=== PATIENT | female | born 1955 | race Caucasian/White ===

== ENCOUNTER 2016-12-04 18:20 | Observation (INO) | payer SELFPAY ==
[~2016-12-04] VITALS: Ht 160 cm; Wt 45.0 kg
[2016-12-04] VITALS (8 sets, daily range): BP systolic 78–160; BP diastolic 54–88; PULSE 68–87; RESP 16–20; TEMP 97.7–98; O2SAT 95–100
[~2016-12-04 18:20] MED LIST: PERC5TAB12 PO
[2016-12-04] MEDS ORDERED: SODIUM CHLOR 0.9% 1000 ML INJ 1,000 ML IV ONE ×2 (18:31→20:00)
--- NOTE | 2016-12-04 18:34 | PD ---
HPI Chief Complaint: syncope Time Seen by Provider: 18:34 Travel History International Travel<30 days: No Contact w/Intl Traveler<30days: No History of Present Illness HPI 61-year-old female with a past medical history of chronic neck and back pain on Dilaudid at home presents to the emergency department for evaluation of syncope. She states she was at a family member's house standing up when she had a syncopal episode. She states she felt fine before this single episode and denies any headache or chest pain before. No dizziness before. She denies any seizure activity and states it was witnessed by a family member. The patient reports cough and congestion for the past 4 days after "I inhaled a piece of licorice". She states she has been taking her daughter's antibiotics that were left over for this. Patient reports headache at this time. She does report history of chronic neck pain and is unsure of her neck pain is worse at this time. Patient was ambulatory after the syncopal episode. She denies any fevers or chills. She denies any illegal drug use. She denies any alcohol intake. According to EMS, she was hypotensive on scene with a systolic blood pressure in the 70s. Patient states her blood pressure normally runs 90 systolic. Patient denies any recent surgery or travel. She denies any chest pain. No hemoptysis. No edema. She denies any history of renal disease or CHF. PFSH Past Medical History Cancer: No COPD: No (denies having copd) Endocrine: No Gastrointestinal Disorders: Yes (hepatitis C) Hepatitis: Yes Hypertension: Yes Musculoskeletal: No Neurologic: No Past Surgical History Appendectomy: Yes Social History Alcohol Use: No Tobacco Use: Yes (1/2 PPD) Substance Use: Yes (cocaine, marijuana) Allergies-Medications (Allergen,Severity, Reaction): Coded Allergies: Penicillin (Verified Allergy, Severe, Hives, 02/13/16) Erythromycin (Verified Allergy, Intermediate, yeast infection, 02/13/16) *MDRO Multi-Drug Resistant Organism (Verified Adverse Reaction, Unknown, ) 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 SKIN: Warm and dry. HEAD: Normocephalic. Atraumatic. EYES: No scleral icterus. No injection or drainage. NECK: Supple, trachea midline. No JVD or lymphadenopathy. CARDIOVASCULAR: Regular rate and rhythm without murmurs, gallops, or rubs. RESPIRATORY: Breath sounds equal bilaterally. No accessory muscle use. Lungs sounds are clear to auscultation. GASTROINTESTINAL: Abdomen soft, non-tender, nondistended. MUSCULOSKELETAL: No cyanosis, or edema. Bilateral upper lower extremity strength 5/5. All extremities are neurovascularly intact. BACK: No obvious deformity. No CVA tenderness. Patient has midline cervical spine tenderness to palpation. Data Data Last Documented VS Vital Signs Date Time Temp Pulse Resp B/P Pulse Ox O2 Delivery O2 Flow Rate FiO2 12/04/16 19:30 77 16 96/65 90 78/54 12/04/16 19:06 Room Air 12/04/16 18:29 97.7 95 Orders Electrocardiogram (12/04/16 18:31) Complete Blood Count With Diff (12/04/16 18:31) Comprehensive Metabolic Panel (12/04/16 18:31) Magnesium (Mg) (12/04/16 18:31) Ckmb (Isoenzyme) Profile (12/04/16 18:31) Troponin I (12/04/16 18:31) Act Partial Throm Time (Ptt) (12/04/16 18:31) Prothrombin Time / Inr (Pt) (12/04/16 18:31) Urinalysis - C+S If Indicated (12/04/16 18:31) Chest, Single Ap (12/04/16 18:31) Ct Brain W/O Iv Contrast(Rout) (12/04/16 18:31) Ct Cerv Spine W/O Contrast (12/04/16 18:31) Ecg Monitoring (12/04/16 18:31) Iv Access Insert/Monitor (12/04/16 18:31) Oximetry (12/04/16 18:31) Sodium Chloride 0.9% Flush (Ns Flush) (12/04/16 18:45) Sodium Chlor 0.9% 1000 Ml Inj (Ns 1000 M (12/04/16 18:31) Orthostatic Vital Signs (12/04/16 18:31) Drug Screen, Random Urine (12/04/16 18:31) Sodium Chlor 0.9% 1000 Ml Inj (Ns 1000 M (12/04/16 20:00) Labs Laboratory Tests Test 12/04/16 19:00 White Blood Count 7.3 TH/MM3 Red Blood Count 4.60 MIL/MM3 Hemoglobin 14.4 GM/DL Hematocrit 42.9 % Mean Corpuscular Volume 93.1 FL Mean Corpuscular Hemoglobin 31.2 PG Mean Corpuscular Hemoglobin 33.5 % Concent Red Cell Distribution Width 16.1 % Platelet Count 156 TH/MM3 Mean Platelet Volume 8.2 FL Neutrophils (%) (Auto) 73.7 % Lymphocytes (%) (Auto) 16.4 % Monocytes (%) (Auto) 8.0 % Eosinophils (%) (Auto) 1.4 % Basophils (%) (Auto) 0.5 % Neutrophils # (Auto) 5.4 TH/MM3 Lymphocytes # (Auto) 1.2 TH/MM3 Monocytes # (Auto) 0.6 TH/MM3 Eosinophils # (Auto) 0.1 TH/MM3 Basophils # (Auto) 0.0 TH/MM3 CBC Comment DIFF FINAL Differential Comment Prothrombin Time 11.0 SEC Prothromb Time International 1.0 RATIO Ratio Activated Partial 24.7 SEC Thromboplast Time Sodium Level 140 MEQ/L Potassium Level 4.5 MEQ/L Chloride Level 108 MEQ/L Carbon Dioxide Level 23.6 MEQ/L Anion Gap 8 MEQ/L Blood Urea Nitrogen 21 MG/DL Creatinine 1.99 MG/DL Estimat Glomerular Filtration 25 ML/MIN Rate Random Glucose 178 MG/DL Calcium Level 9.0 MG/DL Magnesium Level 2.3 MG/DL Total Bilirubin 0.5 MG/DL Aspartate Amino Transf 63 U/L (AST/SGOT) Alanine Aminotransferase 88 U/L (ALT/SGPT) Alkaline Phosphatase 90 U/L Total Creatine Kinase 55 U/L Troponin I LESS THAN 0.02 NG/ML Total Protein 8.4 GM/DL Albumin 3.7 GM/DL [facility] Medical Decision Making Medical Screen Exam Complete: Yes Emergency Medical Condition: Yes Medical Record Reviewed: Yes Interpretation(s) chest x-ray - CONCLUSION: Hyperinflated lungs; No evidence of acute air space disease or congestion. CT brain - CONCLUSION: Minimal left frontal subcutaneous swelling. No evidence of acute intracranial trauma, infarct, hemorrhage mass or edema. CT cervical spine - CONCLUSION: Mild degenerative anterolisthesis at C4-5 secondary to facet arthropathy. No evidence of acute fracture or traumatic listhesis. Moderate to severe degenerative disc disease at C5-6 and C6-7. Differential Diagnosis Medication overdose versus electrolyte abnormality versus cardiac arrhythmia versus hypotension versus dehydration versus intracranial abnormality Narrative Course 61-year-old female presents to the emergency department after a syncopal episode that was witnessed just prior to arrival. EKG, CBC, CMP, magnesium, CK , troponin, coags, UA, urine drug screen are ordered and pending. CT of the brain and cervical spine are ordered and pending. Chest x-ray is ordered and pending. Orthostatic vital signs are ordered and pending. Patient is given normal saline 1 L IV bolus. EKG shows SR, HR 86, no acute ST changes. CBC is unremarkable. CMP shows elevated BUN/creatinine of 21/1.99, AST 63, ALT 88. Magnesium is 2.3. CK is 55. Troponin is less than 0.02. Coags are unremarkable. UA [and UDS are pending. CT of the brain shows No evidence of acute intracranial trauma, infarct, hemorrhage mass or edema.. CT of the cervical spine show no evidence of acute fracture or traumatic listhesis.. Chest x-ray shows hyperinflated lungs; no evidence of acute air space disease or congestion. Orthostatic VS are positive for orthostatic hypotension. Patient is given 2nd liter IVF. [facility] is paged for admission. Dr. Kellogg accepted admission. Diagnosis Primary Impression: Syncope Qualified Code: R55 - Syncope, unspecified syncope type Additional Impressions: Orthostatic hypotension Acute kidney injury Admitting Information Admitting Physician Requests: Observation Ruby Garcia Dec 04, 2016 18:34
[2016-12-04] MEDS ORDERED: SODIUM CHLORIDE 0.9% FLUSH 5 ML FLUSH IVF PRN (18:45)
[2016-12-04 19:30] LABS: AUTOMATED NEUTROPHIL # 5.4 TH/MM3 (1.8-7.7); BASOPHIL % 0.5 % (0.0-2.0); EOSINOPHIL # 0.1 TH/MM3 (0-0.4); EOSINOPHIL % 1.4 % (0.0-4.0); HEMATOCRIT 42.9 % (35.0-46.0); HEMO FLAGS DIFF FINAL; LYMPH % 16.4 % (9.0-44.0); LYMPHOCYTE # 1.2 TH/MM3 (1.0-4.8); MEAN CELL VOLUME 93.1 FL (80.0-100.0); MEAN CORPUSCULAR HEMOGLOBIN 31.2 PG (27.0-34.0); MEAN CORPUSCULAR HGB CONC 33.5 % (32.0-36.0); NEUT % 73.7 % (16.0-70.0); PLATELET COUNT 156 TH/MM3 (150-450); RED CELL DISTRIBUTION WIDTH 16.1 % (11.6-17.2); WHITE BLOOD COUNT 7.3 TH/MM3 (4.0-11.0)
[2016-12-04 19:42] LABS: APTT (PATIENT) 24.7 SEC (24.3-30.1)
--- NOTE | 2016-12-04 19:48 | RADRPT ---
EXAM DATE/TIME: 12/04/2016 19:07 [facility] COMPARISON: CHEST SINGLE AP, February 17, 2016, 16:53. EXTERNAL COMPARISON : INDICATIONS : Patient passed out. MEDICAL HISTORY : None. SURGICAL HISTORY : None. ENCOUNTER: Initial ACUITY: 1 day PAIN SCORE: 0/10 LOCATION: Bilateral chest FINDINGS: Lungs are markedly hyperinflated. There is no evidence of consolidating airspace disease, pneumothora x or congestion. Heart and mediastinal structures are unremarkable. CONCLUSION: Hyperinflated lungs No evidence of acute air space disease or congestion. Arsh Stanley MD on December 04, 2016 at 19:45 Board Certified Radiologist. This report was verified electronically.
[2016-12-04 19:50] LABS: ALT (GPT) 88 U/L (10-53); ANION GAP 8 MEQ/L (5-15); AST (GOT) 63 U/L (15-37); BICARBONATE 23.6 MEQ/L (21.0-32.0); BLOOD UREA NITROGEN 21 MG/DL (7-18); CHLORIDE 108 MEQ/L (98-107); GLOMERULAR FILTRATION RATE 25 ML/MIN (>89); MAGNESIUM 2.3 MG/DL (1.5-2.5); POTASSIUM 4.5 MEQ/L (3.5-5.1); SODIUM (NA) 140 MEQ/L (136-145)
--- NOTE | 2016-12-04 19:53 | RADRPT ---
EXAM DATE/TIME: 12/04/2016 18:59 [facility] COMPARISON: CT BRAIN W/O CONTRAST, February 13, 2016, 2:10. INDICATIONS : Syncope with head trauma. RADIATION DOSE: 28.64 CTDIvol (mGy) MEDICAL HISTORY : Hepatitis C. Hypertension. Chronic obstructive pulmonary disease. SURGICAL HISTORY : Appendectomy. ENCOUNTER: Initial ACUITY: 1 day PAIN SCALE: 5/10 LOCATION: cranial TECHNIQUE: Multiple contiguous axial images were obtained of the head. Using automated exposure control and adj ustment of the mA and/or kV according to patient size, radiation dose was kept as low as reasonably a chievable to obtain optimal diagnostic quality images. FINDINGS: CEREBRUM: The ventricles are normal for age. No evidence of midline shift, mass lesion, hemorrhage or acute in farction. No extra-axial fluid collections are seen. POSTERIOR FOSSA: The cerebellum and brainstem are intact. The 4th ventricle is midline. The cerebellopontine angle i s unremarkable. EXTRACRANIAL: There is minimal left frontal subcutaneous swelling. The visualized portion of the orbits is intact. SKULL: The calvaria is intact. No evidence of skull fracture. CONCLUSION: Normal left frontal subcutaneous swelling. No evidence of acute intracranial trauma, infarct, hemorrhage mass or edema. Arsh Stanley MD on December 04, 2016 at 19:51 Board Certified Radiologist. This report was verified electronically.
[2016-12-04 19:54] LABS: ALKALINE PHOSPHATASE 90 U/L (45-117); TOTAL BILIRUBIN ADULT 0.5 MG/DL (0.2-1.0)
--- NOTE | 2016-12-04 19:56 | RADRPT ---
EXAM DATE/TIME: 12/04/2016 18:59 [facility] COMPARISON: No previous studies available for comparison. INDICATIONS : Syncope with head trauma. RADIATION DOSE: 7.66 CTDIvol (mGy) MEDICAL HISTORY : Chronic obstructive pulmonary disease. Hepatitis C. Hypertension. SURGICAL HISTORY : Appendectomy. ENCOUNTER: Initial ACUITY: 1 day PAIN SCALE: 5/10 LOCATION: cranial TECHNIQUE: Volumetric scanning of the cervical spine was performed. Multiplanar reconstructions in the sagittal, coronal and oblique axial planes were performed. Using automated exposure control and adjustment o f the mA and/or kV according to patient size, radiation dose was kept as low as reasonably achievable to obtain optimal diagnostic quality images. FINDINGS: Craniocervical and cervical vertebral body alignment are intact. There is no evidence of acute fractu re or traumatic listhesis. Slight anterior subluxation of C4 and C5 is noted. There is significant right-sided facet arthropathy is this level. Advanced degenerative disc disease identified at C5-6 and C6-7. There is disc space narrowing, endpla te sclerosis and marginal spurring. Mild/moderate facet arthropathy is present at all levels especially on the right. CONCLUSION: Mild degenerative anterolisthesis at C4-5 secondary to facet arthropathy. No evidence of acute fracture or traumatic listhesis. Moderate to severe degenerative disc disease at C5-6 and C6-7. Arsh Stanley MD on December 04, 2016 at 19:52 Board Certified Radiologist. This report was verified electronically.
[2016-12-04 20:07] LABS: CREATINE KINASE 55 U/L (26-192)
[2016-12-04] MEDS ORDERED: DILA4TAB2 PO (20:24)
[2016-12-04] MEDS ORDERED: ACETAMINOPHEN 325 MG TAB PO PRN (20:30)
[2016-12-04] MEDS ORDERED: BISACODYL 10 MG SUPP PR PRN (20:30)
[2016-12-04] MEDS ORDERED: HYDROmorphone HCL PF 1 MG/ML VIAL IV PRN (20:30)
[2016-12-04] MEDS ORDERED: ONDANSETRON HCL 4 MG/2 ML VIAL IVP PRN (20:30)
[2016-12-04] MEDS ORDERED: SODIUM CHLORIDE 0.9% FLUSH 5 ML FLUSH FLUSH PRN (20:30)
--- NOTE | 2016-12-04 20:32 | HHI.HP ---
HPI Service [facility] Primary Care Physician No Primary Care Physician Admission Diagnosis syncope, orthostatic hypotension, GONZALO Diagnoses: (1) Syncope Diagnosis: Principal (2) Orthostatic hypotension Diagnosis: Principal (3) GONZALO (acute kidney injury) Diagnosis: Principal (4) Chronic pain Diagnosis: Principal (5) Tobacco abuse Diagnosis: Principal Travel History International Travel<30 Days: No Contact w/Intl Traveler <30 Da: No Traveled to Known Affected Are: No History of Present Illness This is a 61-year-old female with a PMH of HTN, Hepatitis C, Chronic Pain, COPD , Tobacco Abuse and h/o Cocaine Abuse who was brought to the ER by EMS after syncopal episode. Pt has no recollection of events. States she was standing up at her dresser cleaning out her drawer when she had sudden syncopal event. Denies lightheadedness, dizziness, chest pain or SOB prior to syncope. Upon EMS arrival, BP noted to be 70's systolic s/p IVF w/ some improvement. Pt reports baseline BP usually 90's systolic. Denies fever, chills, nausea, vomiting or diarrhea, but does report decreased PO intake in the last 2-3 days. On arrival, BP 100/66, HR 87, O2 sat 95% on RA, Afebrile. Orthostatic Vital Signs positive. CBC essentially unremarkable except for mildly elevated neutrophil count. Creatinine 1.99, previously 1.08 on 03/31/16. LFTs minimally elevated. Troponin negative. UA and Urine Drug Screen pending. CT Head left frontal subcutaneous swelling, no acute intracranial pathology noted. CT C- spine with no acute fracture. CXR with COPD. Pt currently without complaints. Review of Systems Except as stated in HPI: all other systems reviewed are Neg ROS: 14 point review of systems otherwise negative. 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 No h/o DM or CAD Social History PAST SOCIAL HISTORY: Negative for alcohol. Smokes 1/2ppd. Positive for h/o Cocaine/Marijuana. Physical Exam Vital Signs Vital Signs Date Time Temp Pulse Resp B/P Pulse Ox O2 Delivery O2 Flow Rate FiO2 12/04/16 19:30 77 16 96/65 90 78/54 12/04/16 19:06 Room Air 12/04/16 18:29 97.7 87 20 100/66 95 Physical Exam PE: GENERAL: Thin middle-aged female in no acute distress. HEENT: PERRLA, EOMI. No scleral icterus or conjunctival pallor. No lid lag or facial droop. CARDIOVASCULAR: Regular rate and rhythm. No obvious murmurs to auscultation. No chest tenderness to palpation. RESPIRATORY: No obvious rhonchi or wheezing. Clear to auscultation. Breath sounds equal bilaterally. GASTROINTESTINAL: Abdomen soft, non-tender, nondistended. BS normal. MUSCULOSKELETAL: Extremities without clubbing, cyanosis, or edema. No obvious deformities. NEUROLOGICAL: Awake, alert and oriented x4. No focal neurologic deficits. Moving both upper and lower extremities spontaneously. Laboratory Laboratory Tests Test 12/04/16 19:00 White Blood Count 7.3 Red Blood Count 4.60 Hemoglobin 14.4 Hematocrit 42.9 Mean Corpuscular Volume 93.1 Mean Corpuscular Hemoglobin 31.2 Mean Corpuscular Hemoglobin 33.5 Concent Red Cell Distribution Width 16.1 Platelet Count 156 Mean Platelet Volume 8.2 Neutrophils (%) (Auto) 73.7 Lymphocytes (%) (Auto) 16.4 Monocytes (%) (Auto) 8.0 Eosinophils (%) (Auto) 1.4 Basophils (%) (Auto) 0.5 Neutrophils # (Auto) 5.4 Lymphocytes # (Auto) 1.2 Monocytes # (Auto) 0.6 Eosinophils # (Auto) 0.1 Basophils # (Auto) 0.0 CBC Comment DIFF FINAL Differential Comment Prothrombin Time 11.0 Prothromb Time International 1.0 Ratio Activated Partial 24.7 Thromboplast Time Sodium Level 140 Potassium Level 4.5 Chloride Level 108 Carbon Dioxide Level 23.6 Anion Gap 8 Blood Urea Nitrogen 21 Creatinine 1.99 Estimat Glomerular Filtration 25 Rate Random Glucose 178 Calcium Level 9.0 Magnesium Level 2.3 Total Bilirubin 0.5 Aspartate Amino Transf 63 (AST/SGOT) Alanine Aminotransferase 88 (ALT/SGPT) Alkaline Phosphatase 90 Total Creatine Kinase 55 Troponin I LESS THAN 0.02 Total Protein 8.4 Albumin 3.7 Result Diagram: 12/04/16189912/04/161899 Assessment and Plan Problem List: (1) Syncope ICD Code: R55 Status: Acute (2) Orthostatic hypotension ICD Code: I95.1 Status: Acute (3) GONZALO (acute kidney injury) ICD Code: N17.9 Status: Acute (4) Chronic pain ICD Code: G89.29 Status: Acute (5) Tobacco abuse ICD Code: Z72.0 Status: Acute Assessment and Plan A/P: 1. Syncope: acute syncopal episode while standing at dresser, no prodromal symptoms. CT Head/C-Spine w/ left frontal subcutaneous swelling and cervical degenerative changes, no acute findings, images reviewed by me. Syncope likely vasovagal, Orthostatic Vital Signs positive, IVF for hydration, place on telemetry, check Echo. U/a and Urine Drug Screen pending, will follow. 2. Orthostatic Hypotension: BP 70's systolic upon EMS arrival, s/p IVF. + orthostatic vital signs in ER-supine 96/65, HR 77, standing 78/54, HR 90. s/p IVF, BP currently 130's systolic. Will continue to monitor. 3. GONZALO: Creatinine 1.99, previously 1.08 on 03/31/16. U/a, Urine Drug Screen pending, IVF for hydration, repeat labs in am. 4. Chronic Pain: On Dilaudid 4mg po q8h prn at home for chronic pain, will resume home medications, caution w/ BP. 5. Tobacco Abuse: Pt counselled. NicoDerm prn if needed. 6. DVT Prophylaxis: SCD/Teds. 7. Social work for d/c planning as needed. 8. Case discussed w/ ER physician at length. Problem Qualifiers (1) Syncope: Qualified Code: R55 - Syncope, unspecified syncope type Kenzie Kellogg MD Dec 04, 2016 20:32
[2016-12-04] MEDS: SODIUM CHLORIDE 0.9% FLUSH 5 ML FLUSH FLUSH SCH (21:00)
[2016-12-04] MEDS: HYDROmorphone HCL 4 MG TAB PO PRN (22:32)
[2016-12-04] MEDS: SODIUM CHLOR 0.9% 1000 ML INJ 1,000 ML IV SCH (22:32)
[2016-12-05] VITALS (7 sets, daily range): BP systolic 121–192; BP diastolic 67–103; PULSE 70–80; RESP 18–20; TEMP 97.4–98.8; O2SAT 95–98
[2016-12-05] MEDS: HYDROmorphone HCL 4 MG TAB PO PRN ×3 (05:30→22:11)
[2016-12-05] MEDS: SODIUM CHLOR 0.9% 1000 ML INJ 1,000 ML IV SCH ×2 (05:30→16:30)
[2016-12-05 07:09] LABS: MEAN CELL VOLUME 94.5 FL (80.0-100.0); MEAN CORPUSCULAR HGB CONC 33.9 % (32.0-36.0); PLATELET COUNT 126 TH/MM3 (150-450); RED BLOOD COUNT 3.92 MIL/MM3 (4.00-5.30); RED CELL DISTRIBUTION WIDTH 16.8 % (11.6-17.2)
[2016-12-05 07:10] LABS: HEMO FLAGS AUTO DIFF; WHITE BLOOD COUNT 5.8 TH/MM3 (4.0-11.0)
[2016-12-05 07:19] LABS: ALKALINE PHOSPHATASE 71 U/L (45-117); ALT (GPT) 71 U/L (10-53); ANION GAP 12 MEQ/L (5-15); AST (GOT) 80 U/L (15-37); BICARBONATE 19.2 MEQ/L (21.0-32.0); CHLORIDE 110 MEQ/L (98-107); GLOMERULAR FILTRATION RATE 32 ML/MIN (>89); SODIUM (NA) 141 MEQ/L (136-145); TOTAL BILIRUBIN ADULT 0.3 MG/DL (0.2-1.0)
[2016-12-05 07:25] LABS: BLOOD UREA NITROGEN 24 MG/DL (7-18); POTASSIUM 6.3 MEQ/L (3.5-5.1)
[2016-12-05 07:42] LABS: BANDS 11 % (0-6); EOSINOPHILS 1 % (0-4); NEUTROPHIL # MANUAL DIFF 2.7 TH/MM3 (1.8-7.7); PLATELET ESTIMATE SMEAR LOW (NORMAL); PLATELET MORPHOLOGY NORMAL (NORMAL); POLYS (SEG NEUTROPHILS) 35 % (16-70); WBC DIFF SAMPLE 100
[2016-12-05 07:43] LABS: SCAN/DIFF FINAL DIFF MANUAL
[2016-12-05] MEDS: SODIUM CHLORIDE 0.9% FLUSH 5 ML FLUSH FLUSH SCH ×2 (09:00→21:00)
--- NOTE | 2016-12-05 09:22 | HHI.PR ---
Subjective Remarks Follow up for syncope, orthostatic hypotension, GONZALO. The patient reports feeling slightly better today. Denies any headache, lightheadedness, dizziness currently, however has not yet ambulated today. She admits she probably does not drink enough fluids throughout the day. Denies any recent nausea/vomiting/ diarrhea. Last BM yesterday morning was normal. She is tolerating oral intake. BP is much improved, currently 138/78. She has no other medical complaints at this time. Objective Vitals Vital Signs Date Time Temp Pulse Resp B/P Pulse Ox O2 Delivery O2 Flow Rate FiO2 12/05/16 07:29 97.7 78 18 138/78 95 12/05/16 06:37 16 12/05/16 04:19 97.4 75 20 127/67 95 12/05/16 00:14 98.0 73 20 121/82 97 12/04/16 22:48 84 12/04/16 22:41 98.0 84 20 160/88 99 12/04/16 22:05 95 16 135/77 100 12/04/16 21:00 68 18 134/68 98 12/04/16 20:00 78 16 122/68 98 12/04/16 19:30 77 16 96/65 90 78/54 12/04/16 19:06 Room Air 12/04/16 19:00 81 16 100/66 100 12/04/16 18:29 97.7 87 20 100/66 95 Result Diagram: 12/05/16 0505 12/05/16 0505 Imaging Last Impressions Head CT 12/04/161830 Signed Impressions: Service Date/Time: Sunday, December 04, 2016 18:59 - CONCLUSION: Normal left frontal subcutaneous swelling. No evidence of acute intracranial trauma, infarct, hemorrhage mass or edema. Arsh Stanley MD Chest X-Ray 12/04/161830 Signed Impressions: Service Date/Time: Sunday, December 04, 2016 19:07 - CONCLUSION: Hyperinflated lungs No evidence of acute air space disease or congestion. Arsh Stanley MD Cervical Spine CT 12/04/161830 Signed Impressions: Service Date/Time: Sunday, December 04, 2016 18:59 - CONCLUSION: Mild degenerative anterolisthesis at C4-5 secondary to facet arthropathy. No evidence of acute fracture or traumatic listhesis. Moderate to severe degenerative disc disease at C5-6 and C6-7. Arsh Stanley MD Objective Remarks GENERAL: Well-nourished, well-developed middle aged female patient in NAD. Sleeping upon my arrival, easily awakens to voice. SKIN: Warm and dry. No rash. HEENT: Normocephalic. Atraumatic. Pupils equal and round. No scleral icterus. No injection or drainage. Mucous membranes slightly dry. NECK: Supple. Trachea midline. CARDIOVASCULAR: Regular rate and rhythm. S1, S2 noted. No murmur appreciated. RESPIRATORY: No accessory muscle use. Clear to auscultation. Breath sounds equal bilaterally. GASTROINTESTINAL: Abdomen soft, non-tender, nondistended. Normoactive bowel sounds x4. MUSCULOSKELETAL: No obvious deformities. Extremities without clubbing, cyanosis , or edema. NEUROLOGICAL: Awake and alert. No obvious cranial nerve deficits. Motor grossly within normal limits. 5/5 muscle strength in bilateral upper and lower extremities. Normal speech. PSYCHIATRIC: Appropriate mood and affect; insight and judgment normal. Medications and IVs Current Medications Medications (Trade) Dose Ordered Sig/Marybeth Route Start Time Stop Time Status Last Admin (NS 1000 ml Inj) 1,000 ml @ 100 mls/hr Q10H IV 12/04/16 20:30 12/05/16 05:30 (NS Flush) 2 ml UNSCH PRN FLUSH 12/04/16 20:30 12/04/16 22:32 (NS Flush) 2 ml BID FLUSH 12/04/16 21:00 (Zofran Inj) 4 mg Q6H PRN IVP 12/04/16 20:30 (Dulcolax Supp) 10 mg DAILY PRN [place] 12/04/16 20:30 (Tylenol) 650 mg Q6H PRN PO 12/04/16 20:30 (Dilaudid Pf Inj) 1 mg Q3H PRN IV 12/04/16 20:30 (Dilaudid) 4 mg Q8H PRN PO 12/04/16 20:30 12/05/16 05:30 Urinary Catheter: No Vascular Central Line Catheter: No A/P Problem List: (1) Syncope ICD Code: R55 Status: Acute (2) Orthostatic hypotension ICD Code: I95.1 Status: Acute (3) GONZALO (acute kidney injury) ICD Code: N17.9 Status: Acute (4) Chronic pain ICD Code: G89.29 Status: Acute (5) Tobacco abuse ICD Code: Z72.0 Status: Acute Assessment and Plan 61-year-old female with a PMH of HTN, Hepatitis C, Chronic Pain, COPD, Tobacco Abuse and h/o Cocaine Abuse who was brought to the ER by EMS after syncopal episode. Syncope: acute syncopal episode while standing at dresser, no prodromal symptoms. CT Head/C-Spine w/ left frontal subcutaneous swelling and cervical degenerative changes, no acute findings, images reviewed by me. Syncope likely vasovagal. Orthostatic Vital Signs positive. Give IVF for hydration. Monitor on telemetry. Check Echo. U/a and Urine Drug Screen pending. Orthostatic Hypotension: BP 70's systolic upon EMS arrival, s/p IVF. + orthostatic vital signs in ER-supine 96/65, standing 78/54. S/p IVF, BP currently 130's systolic. Will continue to monitor. Recheck orthostatics. GONZALO: Creatinine 1.99, previously 1.08 on 03/31/16. U/a, UDS pending. IVF for hydration. Repeat labs today improving, Cr 1.64. Hyperkalemia: K increased from 4.5 to 6.3 overnight, sample noted to have moderate hemolysis. Repeat serum potassium now, give Kayexalate if still elevated. Chronic Pain: On Dilaudid 4mg po q8h prn at home for chronic pain, resume home medications, caution w/ BP. Tobacco Abuse: Pt counselled. NicoDerm prn if needed. DVT Prophylaxis: SCD/Teds. Discussed with Dr. Prasad. Problem Qualifiers (1) Syncope: Qualified Code: R55 - Syncope, unspecified syncope type Katia Serrano PA-C Dec 05, 2016 9:22 am
[2016-12-05 10:46] LABS: BACTERIA, URINE RARE /hpf; BLOOD, URINE NEG (NEG); GLUCOSE,URINE 150 mg/dL (NEG); KETONE, URINE NEG (NEG); MUCUS URINE FEW /lpf (OCC); NITRITE,URINE NEG (NEG); SQUAMOUS EPITHELIAL CELL URINE 1 /hpf (0-5); URINE COLOR YELLOW (YELLW/STRAW)
[2016-12-05 10:47] LABS: COMMENT (UR) CULT NOT INDICATED; CULTURE IF INDICATED CULT NOT INDICATED
[2016-12-05 10:51] LABS: AMPHETAMINE, URINE NEG (NEG); BARBITURATES, URINE NEG (NEG); COCAINE, URINE POS (NEG)
--- NOTE | 2016-12-05 14:23 | EC ---
Study Study Date:12/05/2016 STUDY CONCLUSIONS SUMMARY - Left ventricle: The cavity size was normal. Wall thickness was normal. Systolic function was normal. The estimated ejection fraction was in the range of 55% to 60%. Wall motion was normal; there were no regional wall motion abnormalities. - Mitral valve: Mild regurgitation. - Tricuspid valve: Mild regurgitation. - Pulmonary arteries: PA peak pressure: 46mm Hg (S). If LV function is below 40, please consider prescribing an ACEI or ARB or document rationale for non-use. PROCEDURE DATA STUDY STATUS: Elective. Procedure: Transthoracic echocardiography. Image quality was good. Scanning was performed from the parasternal, apical, and subcostal acoustic windows. Study completion: The patient tolerated the procedure well. Transthoracic echocardiography. M-mode, complete 2D, complete spectral Doppler, and color Doppler. Patient status: Inpatient. CARDIAC ANATOMY LEFT VENTRICLE: The cavity size was normal. Wall thickness was normal. Systolic function was normal. The estimated ejection fraction was in the range of 55% to 60%. Wall motion was normal; there were no regional wall motion abnormalities. AORTIC VALVE: Trileaflet; normal thickness leaflets. Doppler: Transvalvular velocity was within the normal range. There was no stenosis. No regurgitation. AORTA: Aortic root: The aortic root was normal in size. MITRAL VALVE: Structurally normal valve. Doppler: Transvalvular velocity was within the normal range. There was no evidence for stenosis. Mild regurgitation. Valve area by pressure half-time: 2.97cm^2. LEFT ATRIUM: The atrium was normal in size. RIGHT VENTRICLE: The cavity size was normal. Wall thickness was normal. PULMONIC VALVE: Doppler: Transvalvular velocity was within the normal range. There was no evidence for stenosis. No regurgitation. TRICUSPID VALVE: Structurally normal valve. Doppler: Transvalvular velocity was within the normal range. Mild regurgitation. PULMONARY ARTERY: The main pulmonary artery was normal-sized. Systolic pressure was within the normal range. RIGHT ATRIUM: The atrium was normal in size. PERICARDIUM: There was no pericardial effusion. SYSTEMIC VEINS: Inferior vena cava: The vessel was normal in size. BASIC MEASUREMENTS ADULT Normal Left ventricle LV internal dimension, ED, chordal level, *35.7 mm 43-52 PLAX LV internal dimension, ES, chordal level, 26.8 mm 23-38 PLAX Fractional shortening, chordal level, PLAX *25 % >29 LV posterior wall thickness, ED 9.89 mm IVS/LVPW ratio, ED 0.67 <1.3 Ventricular septum Septal thickness, ED 6.65 mm Aortic valve Leaflet separation 16 mm 15-26 Right ventricle RV internal dimension, ED, PLAX 26.6 mm 19-38 BASIC MEASUREMENTS ADULT Normal Aortic valve Leaflet separation 16 mm 15-26 Aorta Root diameter, ED 23 mm 20-37 Left atrium Anterior-posterior dimension, ES 20 mm 19-40 LA/aortic root ratio 0.87 DOPPLER MEASUREMENTS ADULT Normal Main pulmonary artery Pressure, S *46 mm Hg =30 Mitral valve Pressure half-time 74 ms Valve area, pressure half-time 2.97 cm^2 Tricuspid valve Regurgitant peak velocity 299 cm/s Peak RV-RA gradient, S 36 mm Hg Maximal regurgitant velocity 299 cm/s Systemic veins Estimated CVP 10 mm Hg Right ventricle RV pressure, S *46 mm Hg <30 LEGEND: Mean values are shown as u=mean value. Asterisk (*) roberts values outside specified normal range. Prepared and signed by Roderick Rutledge [id number]
--- NOTE | 2016-12-05 19:30 | EKG ---
Date Performed: 12/04/2016 Time Performed: 19:30:32 PTAGE: 61 years EKG: Sinus rhythm BORDERLINE LEFT AXIS DEVIATION NONSPECIFIC T-WAVE ABNORMALITY Since previous tracing, no significant change noted BORDERLINE ECG PREVIOUS TRACING : 02/13/2016 01.28 DOCTOR: Roderick Rutledge Interpretating Date/Time 12/05/2016 19:30:00
[2016-12-06] VITALS: BP 158/76; PULSE 78; RESP 21; TEMP 98.8; O2SAT 97
[2016-12-06] MEDS: SODIUM CHLOR 0.9% 1000 ML INJ 1,000 ML IV SCH (02:30)
[2016-12-06 04:44] LABS: AUTOMATED NEUTROPHIL # 1.9 TH/MM3 (1.8-7.7); BASOPHIL % 0.7 % (0.0-2.0); EOSINOPHIL # 0.4 TH/MM3 (0-0.4); EOSINOPHIL % 8.6 % (0.0-4.0); HEMATOCRIT 36.5 % (35.0-46.0); HEMO FLAGS DIFF FINAL; LYMPH % 41.6 % (9.0-44.0); LYMPHOCYTE # 1.9 TH/MM3 (1.0-4.8); MEAN CELL VOLUME 93.3 FL (80.0-100.0); MEAN CORPUSCULAR HEMOGLOBIN 31.4 PG (27.0-34.0); MEAN CORPUSCULAR HGB CONC 33.7 % (32.0-36.0); MONO % 7.4 % (0.0-8.0); NEUT % 41.7 % (16.0-70.0); PLATELET COUNT 128 TH/MM3 (150-450); RED BLOOD COUNT 3.92 MIL/MM3 (4.00-5.30); RED CELL DISTRIBUTION WIDTH 16.3 % (11.6-17.2); WHITE BLOOD COUNT 4.6 TH/MM3 (4.0-11.0)
[2016-12-06 05:11] LABS: BICARBONATE 20.9 MEQ/L (21.0-32.0); POTASSIUM 4.6 MEQ/L (3.5-5.1)
[2016-12-06 05:17] VITALS: BP_SYST 182; BP_SYST 183; BP_SYST 191; BP_DIAS 100; BP_DIAS 62; BP_DIAS 93; PULSE 82; RESP 19; TEMP 98.1; O2SAT 97
[2016-12-06] MEDS ORDERED: cloNIDine HCL 0.1 MG TAB PO ONE (06:15)
[2016-12-06] MEDS: HYDROmorphone HCL 4 MG TAB PO PRN (06:31)
[2016-12-06] MEDS ORDERED: SODIUM CHLOR 0.45% 1000 ML INJ 1,000 ML IV SCH (07:15)
--- NOTE | 2016-12-06 08:13 | HHI.PR ---
Subjective Remarks Follow-up for syncope. The patient feels okay at this time. She did not sleep at all last night, states the lights in the hospital kept her up. She has been ambulating to the restroom with no difficulties. She states her blood pressures always up and down in the hospital, but is not like that at home. She states she wasn't drinking much fluid prior to coming to the hospital, but can't really say why. She denies any vomiting or diarrhea. Last cocaine use was several days prior to admission, patient does not think use was related to her admission. No specific medical complaints today. She denies any lightheadedness or dizziness. She feels comfortable going home. Objective Vitals Vital Signs Date Time Temp Pulse Resp B/P Pulse Ox O2 Delivery O2 Flow Rate FiO2 12/06/16 05:17 98.1 82 19 183/100 97 191/62 182/93 12/06/16 00:00 98.8 78 21 158/76 97 12/05/16 20:58 98.8 80 18 192/99 98 187/87 168/78 12/05/16 16:08 156/92 133/83 141/73 12/05/16 11:35 79 141/89 139/82 142/77 12/05/16 10:00 70 Result Diagram: 12/06/162 12/06/16401 Imaging Last Impressions Head CT 12/04/161830 Signed Impressions: Service Date/Time: Sunday, December 04, 2016 18:59 - CONCLUSION: Normal left frontal subcutaneous swelling. No evidence of acute intracranial trauma, infarct, hemorrhage mass or edema. Arsh Stanley MD Chest X-Ray 12/04/161830 Signed Impressions: Service Date/Time: Sunday, December 04, 2016 19:07 - CONCLUSION: Hyperinflated lungs No evidence of acute air space disease or congestion. Arsh Stanley MD Cervical Spine CT 12/04/161830 Signed Impressions: Service Date/Time: Sunday, December 04, 2016 18:59 - CONCLUSION: Mild degenerative anterolisthesis at C4-5 secondary to facet arthropathy. No evidence of acute fracture or traumatic listhesis. Moderate to severe degenerative disc disease at C5-6 and C6-7. Arsh Stanley MD Objective Remarks GENERAL: Well-developed well-nourished. In no acute distress. SKIN: Warm and dry. No lesions noted. HEENT: Normocephalic. Pupils equal and round. Mucous membranes pink and moist. CARDIOVASCULAR: Regular rate and rhythm. No murmur appreciated. RESPIRATORY: No accessory muscle use. Clear to auscultation. Breath sounds equal bilaterally. GASTROINTESTINAL: Abdomen soft, non-tender, nondistended. Bowel sounds x4. MUSCULOSKELETAL: No obvious deformities. No clubbing or cyanosis. No edema. NEUROLOGICAL: Awake and alert. No focal neurological deficits. Moves upper and lower extremities spontaneously. Normal speech. PSYCHIATRIC: Appropriate mood and affect; insight and judgment normal. A/P Problem List: (1) Syncope ICD Code: R55 Status: Acute (2) Orthostatic hypotension ICD Code: I95.1 Status: Resolved (3) GONZALO (acute kidney injury) ICD Code: N17.9 Status: Acute (4) Chronic pain ICD Code: G89.29 Status: Chronic (5) Tobacco abuse ICD Code: Z72.0 Status: Chronic Assessment and Plan 61-year-old female with a PMH of HTN, Hepatitis C, Chronic Pain, COPD, Tobacco Abuse and h/o Cocaine Abuse who was brought to the ER by EMS after syncopal episode. Syncope: acute syncopal episode while standing at dresser, no prodromal symptoms. CT Head/C-Spine w/ left frontal subcutaneous swelling and cervical degenerative changes, no acute findings. Syncope likely vasovagal from dehydration and orthostasis. Echocardiogram with normal systolic function and EF 55%. UDS positive for cocaine. Give IVF for hydration. Monitor on telemetry. Orthostatic Hypotension: BP 70's systolic upon EMS arrival, s/p IVF. + orthostatic vital signs in ER-supine 96/65, standing 78/54. Repeat orthostatic vital signs improved with IVF. GONZALO: Creatinine 1.99, previously 1.08 on 03/31/16. CPK 55. Creatinine improved to 1.39 with IVF. Continues to improve, continue IVF for now. Encourage oral intake. Hypertension: Likely secondary to aggressive IVF from the above. When necessary BP meds. Monitor. Hyperkalemia: 1 labs showed potassium 6.3 due to hemolysis. Otherwise potassium has been 4.5, 4.1, 4.6. Resolved. Chronic Pain: On Dilaudid 4mg po q8h prn at home for chronic pain, continue home medications, caution w/ BP. Tobacco and cocaine Abuse: Pt counselled. NicoDerm prn if needed. Hepatitis C: Chronic. LFTs stable. Outpatient GI follow-up. DVT Prophylaxis: SCD/Teds. Discharge Planning Likely discharge later today if BP improves. Discussed with Dr. Prasad. Problem Qualifiers (1) Syncope: Qualified Code: R55 - Syncope, unspecified syncope type Randall oNrth Dec 06, 2016 08:13
[2016-12-06] MEDS: SODIUM CHLORIDE 0.9% FLUSH 5 ML FLUSH FLUSH SCH (08:42)
[2016-12-06 08:47] VITALS: BP_SYST 125; BP_SYST 132; BP_SYST 138; BP_DIAS 76; BP_DIAS 77; BP_DIAS 82; PULSE 57; RESP 18; TEMP 98.7; O2SAT 95
[2016-12-06 12:26] VITALS: BP_SYST 141; BP_SYST 159; BP_SYST 196; BP_DIAS 76; BP_DIAS 88; PULSE 67
== END 2016-12-06 15:34 | disposition home or self-care (01) ==
LOC: NEPC 18:20 → NEDH 20:22 → NEPFCDU 22:21
PROVIDERS: ADMIT Hospitalist; ATTEND Hospitalist
DX: R55 Syncope and collapse (principal); I95.1 Orthostatic hypotension; N17.9 Acute kidney failure, unspecified; G89.29 Other chronic pain; F17.210 Nicotine dependence, cigarettes, uncomplicated; J44.9 Chronic obstructive pulmonary disease, unspecified; I10 Essential (primary) hypertension; B19.20 Unspecified viral hepatitis C without hepatic coma
CPT/HCPCS: 70450; 71010; 72125; 80048; 80053; 80307; 81001; 82550; 83735; 84132; 84484; 85007; 85025; 85027; 85610; 85730; 93005; 93306; 99285; G0378; J7030

== ENCOUNTER 2017-05-03 03:11 | Inpatient (IN) | payer SELFPAY ==
[~2017-05-03] VITALS: Ht 157.5 cm; Wt 51.1 kg
[2017-05-03] VITALS (10 sets, daily range): BP systolic 118–184; BP diastolic 61–98; PULSE 69–102; RESP 16–18; TEMP 97.8–101.3; O2SAT 98–100
[~2017-05-03 03:11] MED LIST changes: +DILA4TAB2 PO; -PERC5TAB12 PO
[2017-05-03] MEDS ORDERED: VANCOMYCIN INJ 1,000 MG in SODIUM CHLOR 0.9% 250 ML INJ 250 ML IV ONE (03:15)
[2017-05-03] MEDS ORDERED: AZTREONAM INJ 1,000 MG in SODIUM CHLORIDE 0.9% INJ 100 ML IV ONE (03:15)
[2017-05-03] MEDS ORDERED: SODIUM CHLOR 0.9% 1000 ML INJ 1,000 ML IV ONE ×2 (03:15)
[2017-05-03] MEDS ORDERED: LIDOCAINE 1%/EPINEPHrine 1:100,000 SOLN 20 ML VIAL INFIL ONE (03:30)
--- NOTE | 2017-05-03 03:42 | PD ---
HPI Chief Complaint: AMS. Fever. Time Seen by Provider: 03:13 Travel History International Travel<30 days: No Contact w/Intl Traveler<30days: No Traveled to known affect area: No History of Present Illness HPI 61-year-old female complains of pain swelling left ankle, fever, generalized malaise and weakness. Patient has history IV fentanyl abuse. Patient states that she injured her left ankle about a week ago. Patient states that she has increasing redness swelling of left ankle since then. Patient started having fever for the past several days. Patient denies any headache. Patient denies any chest pain or shortness of breath. Patient denies abdominal pain. Patient denies any nausea vomiting diarrhea. EMS was called by family member today. Patient was found to be lethargic. Patient was given Narcan without much change in mental status. PFSH Past Medical History Cancer: No COPD: No (denies having copd) Endocrine: No Gastrointestinal Disorders: Yes (hepatitis C) Hepatitis: Yes Hypertension: Yes Musculoskeletal: No Neurologic: No Past Surgical History Appendectomy: Yes Social History Alcohol Use: No Tobacco Use: Yes Substance Use: No (Does use dilaudid for pain relief) Allergies-Medications (Allergen,Severity, Reaction): Coded Allergies: Penicillin (Verified Allergy, Severe, Hives, 05/03/17) Erythromycin (Verified Allergy, Intermediate, yeast infection, 05/03/17) Ativan (Verified Allergy, Unknown, 05/03/17) *MDRO Multi-Drug Resistant Organism (Verified Adverse Reaction, Unknown, ) MRSA PCR (nares) positive - 01/06/16; MRSA (blood-03/2016) Reported Meds & Prescriptions Reported Meds & Active Scripts Active Review of Systems General / Constitutional: No: Fever Eyes: No: Visual changes HENT: No: Headaches Cardiovascular: No: Chest Pain or Discomfort Respiratory: No: Shortness of Breath Gastrointestinal: No: Abdominal Pain Genitourinary: No: Dysuria Musculoskeletal: Positive: Pain Skin: No Rash Neurologic: No: Weakness Psychiatric: No: Depression Endocrine: No: Polydipsia Hematologic/Lymphatic: No: Easy Bruising Physical Exam Narrative GENERAL: Well-nourished, well-developed patient. SKIN: Focused skin assessment warm/dry. HEAD: Normocephalic. EYES: No scleral icterus. No injection or drainage. NECK: Supple, trachea midline. No JVD or lymphadenopathy. CARDIOVASCULAR: Regular rate and rhythm without murmurs, gallops, or rubs. RESPIRATORY: Breath sounds equal bilaterally. No accessory muscle use. GASTROINTESTINAL: Abdomen soft, non-tender, nondistended. MUSCULOSKELETAL: Patient has an area of redness swelling induration lateral malleolus area of the left ankle. Mild discharge noted. BACK: Nontender without obvious deformity. No CVA tenderness. Neurologic exam: Patient's lethargic however answer questions appropriately. Patient moves all extremities well. No obvious focal neurological deficit. Data Data Last Documented VS Vital Signs Date Time Temp Pulse Resp B/P Pulse Ox O2 Delivery O2 Flow Rate FiO2 05/03/17 03:53 100 Room Air 05/03/17 03:53 101 16 05/03/17 03:49 101.3 184/79 Orders Electrocardiogram (05/03/17 03:13) Complete Blood Count With Diff (05/03/17 03:13) Comprehensive Metabolic Panel (05/03/17 03:13) Creatine Kinase (Cpk) (05/03/17 03:13) Troponin I (05/03/17 03:13) Prothrombin Time / Inr (Pt) (05/03/17 03:13) Act Partial Throm Time (Ptt) (05/03/17 03:13) Blood Culture (05/03/17 03:13) Urinalysis - C+S If Indicated (05/03/17 03:13) Thyroid Stimulating Hormone (05/03/17 03:13) Chest, Single Ap (05/03/17 03:13) Ct Brain W/O Iv Contrast(Rout) (05/03/17 03:13) Iv Access Insert/Monitor (05/03/17 03:13) Ecg Monitoring (05/03/17 03:13) Oximetry (05/03/17 03:13) Drug Screen, Random Urine (05/03/17 03:13) Alcohol (Ethanol) (05/03/17 03:13) Salicylates (Aspirin) (05/03/17 03:13) Tylenol (Acetaminophen) (05/03/17 03:13) Lactic Acid Sepsis Protocol (05/03/17 03:13) Sodium Chlor 0.9% 1000 Ml Inj (Ns 1000 M (05/03/17 03:15) Sodium Chlor 0.9% 1000 Ml Inj (Ns 1000 M (05/03/17 03:15) Vancomycin Inj (Vancomycin Inj) (05/03/17 03:15) Aztreonam Inj (Azactam Inj) (05/03/17 03:15) Lidocai-Epi 1%-1:100,000 Inj (Xylocaine- (05/03/17 03:30) Wound Culture And Gram Stain (05/03/17 03:17) Ankle, Complete ([id number]) (05/03/17 03:18) CKMB (05/03/17 03:30) CKMB% (05/03/17 03:30) Labs Laboratory Tests Test 05/03/17 03:30 White Blood Count 5.4 TH/MM3 Red Blood Count 3.46 MIL/MM3 Hemoglobin 10.9 GM/DL Hematocrit 32.2 % Mean Corpuscular Volume 93.2 FL Mean Corpuscular Hemoglobin 31.5 PG Mean Corpuscular Hemoglobin 33.8 % Concent Red Cell Distribution Width 14.0 % Platelet Count 161 TH/MM3 Mean Platelet Volume 9.8 FL Neutrophils (%) (Auto) % Lymphocytes (%) (Auto) % Monocytes (%) (Auto) % Eosinophils (%) (Auto) % Basophils (%) (Auto) % Neutrophils # (Auto) TH/MM3 Lymphocytes # (Auto) TH/MM3 Monocytes # (Auto) TH/MM3 Eosinophils # (Auto) TH/MM3 Basophils # (Auto) TH/MM3 CBC Comment AUTO DIFF Differential Total Cells 100 Counted Neutrophils % (Manual) 46 % Band Neutrophils % 28 % Lymphocytes % 22 % Monocytes % 1 % Eosinophils % 3 % Neutrophils # (Manual) 4.0 TH/MM3 Differential Comment FINAL DIFF MANUAL Platelet Estimate NORMAL Platelet Morphology Comment NORMAL Prothrombin Time 10.6 SEC Prothromb Time International 1.0 RATIO Ratio Activated Partial 21.0 SEC Thromboplast Time Sodium Level 135 MEQ/L Potassium Level 5.5 MEQ/L Chloride Level 105 MEQ/L Carbon Dioxide Level 18.5 MEQ/L Anion Gap 12 MEQ/L Blood Urea Nitrogen 63 MG/DL Creatinine 3.46 MG/DL Estimat Glomerular Filtration 13 ML/MIN Rate Random Glucose 101 MG/DL Lactic Acid Level 2.8 mmol/L Calcium Level 8.4 MG/DL Total Bilirubin 0.4 MG/DL Aspartate Amino Transf 232 U/L (AST/SGOT) Alanine Aminotransferase 193 U/L (ALT/SGPT) Alkaline Phosphatase 83 U/L Total Creatine Kinase 4202 U/L Creatine Kinase MB 17.5 NG/ML Creatine Kinase MB % 0.4 % Troponin I 0.02 NG/ML Total Protein 7.9 GM/DL Albumin 3.0 GM/DL Thyroid Stimulating Hormone 0.799 uIU/ML 3rd Gen Salicylates Level 2.4 MG/DL Acetaminophen Level LESS THAN 2.0 MCG/ML Ethyl Alcohol Level LESS THAN 3 MG/DL MDM Medical Decision Making Medical Screen Exam Complete: Yes Emergency Medical Condition: Yes Interpretation(s) Last Impressions Ankle X-Ray 05/03/17317 Signed Impressions: Service Date/Time: Wednesday, May 03, 2017 04:17 - CONCLUSION: Soft tissue swelling over the lateral malleolus with no evidence of osteomyelitis or foreign body. Eddy Middleton MD Head CT 05/03/17312 Signed Impressions: Service Date/Time: Wednesday, May 03, 2017 04:13 - CONCLUSION: Unremarkable exam. Eddy Middleton MD Chest X-Ray 05/03/17312 Signed Impressions: Service Date/Time: Wednesday, May 03, 2017 04:12 - CONCLUSION: 1. Catheter projected over the upper left lateral chest wall which were present a central venous line which has an unusual course and extends cephalad. The tip of the catheter is not visualized. 2. No acute cardiopulmonary disease. There is no evidence of pneumothorax. Eddy Middleton MD 5:44 AM. CBC WBC 5.4. Hemoglobin 10 point hematocrit 32.2. 28 bands. Sodium 135. Potassium 5.5. Chloride 105. Bicarbonate 18.5. BUN 63. Creatinine 3.36. Lactic acid 2.8. Calcium 8.4. AST 232. ALT 193. Total CK 4202. Normal MB fraction. Troponin normal. Differential Diagnosis Differential diagnosis including sepsis, cellulitis, abscess, substance abuse. Narrative Course 61-year-old female with redness swelling and induration lateral malleolus the left ankle, fever, altered mental status, history IV drug abuse. Normal saline solution 2 L IV bolus. Vancomycin 1 g IV. Azactam 1 g IV. Procedures Procedure Narrative CENTRAL VENOUS LINE: The site was prepped with Betadine and sterilely draped. It was infiltrated with 1% lidocaine plain. The deep vein was cannulated using normal Seldinger technique. A triple lumen central line was placed in the right femoral vein site and secured with simple interrupted suture. The site was sterilely dressed. The patient tolerated the procedure well. I&D procedure: 1% lidocaine with epinephrine local anesthesia. Betadine wash. 1.5 cm incision was made on the lateral malleolus of the left ankle. A large amount of pus recovered. Wound culture obtained. Dressing applied. Diagnosis Primary Impression: Abscess of bursa of left ankle Additional Impressions: Sepsis Qualified Code: A41.9 - Sepsis, due to unspecified organism Renal insufficiency Rhabdomyolysis Qualified Code: M62.82 - Non-traumatic rhabdomyolysis Micky Murrieta MD May 03, 2017 03:42
[2017-05-03 04:22] LABS: PROTHROMBIN TIME - PATIENT 10.6 SEC (9.8-11.6)
[2017-05-03 04:23] LABS: ALT (GPT) 193 U/L (10-53); ANION GAP 12 MEQ/L (5-15); AST (GOT) 232 U/L (15-37); BICARBONATE 18.5 MEQ/L (21.0-32.0); BLOOD UREA NITROGEN 63 MG/DL (7-18); CHLORIDE 105 MEQ/L (98-107); GLOMERULAR FILTRATION RATE 13 ML/MIN (>89); POTASSIUM 5.5 MEQ/L (3.5-5.1); SODIUM (NA) 135 MEQ/L (136-145)
[2017-05-03 04:24] LABS: ACETAMINOPHEN LESS THAN 2.0 MCG/ML (10.0-30.0)
--- NOTE | 2017-05-03 04:28 | RADRPT ---
EXAM DATE/TIME: 05/03/2017 04:13 [facility] COMPARISON: CT BRAIN W/O CONTRAST, December 04, 2016, 18:59. INDICATIONS : Altered mental status; patient was found unresponsive. RADIATION DOSE: 31.47 CTDIvol (mGy) MEDICAL HISTORY : Hypertension. Hepatitis C. SURGICAL HISTORY : Appendectomy. ENCOUNTER: Initial ACUITY: 1 day PAIN SCALE: 0/10 LOCATION: cranial TECHNIQUE: Multiple contiguous axial images were obtained of the head. Using automated exposure control and adj ustment of the mA and/or kV according to patient size, radiation dose was kept as low as reasonably a chievable to obtain optimal diagnostic quality images. DICOM format image data is available electro nically for review and comparison. FINDINGS: CEREBRUM: The ventricles are normal for age. No evidence of midline shift, mass lesion, hemorrhage or acute in farction. No extra-axial fluid collections are seen. POSTERIOR FOSSA: The cerebellum and brainstem are intact. The 4th ventricle is midline. The cerebellopontine angle i s unremarkable. EXTRACRANIAL: The visualized portion of the orbits is intact. SKULL: The calvaria is intact. No evidence of skull fracture. CONCLUSION: Unremarkable exam. Eddy Middleton MD on May 03, 2017 at 4:26 Board Certified Radiologist. This report was verified electronically.
[2017-05-03 04:33] LABS: HEMATOCRIT 32.2 % (35.0-46.0); MEAN CELL VOLUME 93.2 FL (80.0-100.0); MEAN CORPUSCULAR HEMOGLOBIN 31.5 PG (27.0-34.0); MEAN CORPUSCULAR HGB CONC 33.8 % (32.0-36.0); PLATELET COUNT 161 TH/MM3 (150-450); RED BLOOD COUNT 3.46 MIL/MM3 (4.00-5.30); WHITE BLOOD COUNT 5.4 TH/MM3 (4.0-11.0)
[2017-05-03 04:34] LABS: HEMO FLAGS AUTO DIFF
[2017-05-03 04:36] LABS: ALKALINE PHOSPHATASE 83 U/L (45-117); CREATINE KINASE 4202 U/L (26-192); TOTAL BILIRUBIN ADULT 0.4 MG/DL (0.2-1.0)
[2017-05-03 04:50] LABS: CKMB 17.5 NG/ML (0.5-3.6)
[2017-05-03 04:59] LABS: BANDS 28 % (0-6); EOSINOPHILS 3 % (0-4); PLATELET ESTIMATE SMEAR NORMAL (NORMAL); PLATELET MORPHOLOGY NORMAL (NORMAL); POLYS (SEG NEUTROPHILS) 46 % (16-70); SCAN/DIFF FINAL DIFF MANUAL; WBC DIFF SAMPLE 100
--- NOTE | 2017-05-03 05:10 | RADRPT ---
EXAM DATE/TIME: 05/03/2017 04:12 CORRECTION Corrected on: May 03, 2017; [facility] COMPARISON: CHEST SINGLE AP, December 04, 2016, 19:07. INDICATIONS : Pt found unresponsive. Open wound and possible infection to lateral left ankle. Evaluate Central Line Placement MEDICAL HISTORY : Hepatitis C. Hypertension SURGICAL HISTORY : None. ENCOUNTER: Initial ACUITY: 1 day PAIN SCORE: Non-responsive. LOCATION: Bilateral chest FINDINGS: A single view of the chest demonstrates the lungs to be symmetrically aerated without evidence of mas s, infiltrate or effusion. The cardiomediastinal contours are unremarkable. Osseous structures are intact. There is no pneumothorax. There are multiple overlying electrocardiogram leads. There is a ca theter now projected over the upper left lateral chest which may represent a central venous line has an unusual course and extends cephalad. The tip of the catheter is not visualized. CONCLUSION: 1. Catheter projected over the upper left lateral chest wall which may represent a central venous génesis e which has an unusual course and extends cephalad. The tip of the catheter is not visualized. 2. No acute cardiopulmonary disease. There is no evidence of pneumothorax. Eddy Middleton MD on May 03, 2017 at 5:07 Board Certified Radiologist. This report was verified electronically. Eddy Middleton MD on May 03, 2017 at 5:48 Board Certified Radiologist. This report was verified electronically.
--- NOTE | 2017-05-03 05:11 | RADRPT ---
EXAM DATE/TIME: 05/03/2017 04:17 [facility] COMPARISON: No previous studies available for comparison. INDICATIONS : Pt found unresponsive. Open wound and possible infection to lateral left ankle. MEDICAL HISTORY : Hepatitis C. Hypertension SURGICAL HISTORY : None. ENCOUNTER: Initial ACUITY: 1 day PAIN SCORE: Non-responsive. LOCATION: Left Ankle FINDINGS: Three view exam was performed of the left ankle. The bony structures are in normal alignment. No ev idence of acute fracture or malalignment. There is focal soft tissue swelling over the lateral malleo maria fernanda. There is no periosteal new bone formation or destructive change. The ankle mortise is intact. N o radiopaque foreign bodies are seen. Bony mineralization is normal. CONCLUSION: Soft tissue swelling over the lateral malleolus with no evidence of osteomyelitis or foreign body. Eddy Middleton MD on May 03, 2017 at 5:09 Board Certified Radiologist. This report was verified electronically.
[2017-05-03 05:41] LABS: LACTIC ACID GHOST NOT REPORTABLE
[2017-05-03] MEDS ORDERED: SENNOSIDES 8.6 MG TAB PO PRN (06:30)
[2017-05-03] MEDS ORDERED: ACETAMINOPHEN 325 MG TAB PO PRN ×2 (06:30→13:45)
[2017-05-03] MEDS ORDERED: Vancomycin Consult Pharmacy 1 EA OTHER SCH (06:30)
[2017-05-03] MEDS ORDERED: SODIUM CHLORIDE 0.9% FLUSH 10 ML FLUSH IV FLUSH PRN (06:30)
[2017-05-03] MEDS ORDERED: LACTULOSE SYRUP 20 GM/30 ML CUP PO PRN (06:30)
[2017-05-03] MEDS ORDERED: BISACODYL 10 MG SUPP RECTAL PRN (06:30)
[2017-05-03] MEDS ORDERED: ONDANSETRON HCL 4 MG/2 ML VIAL IVP PRN (06:30)
[2017-05-03] MEDS ORDERED: MAGNESIUM HYDROXIDE SUSP 30 ML CUP PO PRN (06:30)
[2017-05-03] MEDS: SODIUM CHLOR 0.9% 1000 ML INJ 1,000 ML IV SCH ×3 (06:52→22:28)
[2017-05-03 07:54] LABS: AMPHETAMINE, URINE NEG (NEG); BARBITURATES, URINE NEG (NEG); COCAINE, URINE POS (NEG)
[2017-05-03 08:02] LABS: BACTERIA, URINE OCC /hpf; BLOOD, URINE MOD (NEG); COMMENT (UR) CULT NOT INDICATED; CULTURE IF INDICATED CULT NOT INDICATED; GLUCOSE,URINE NEG (NEG); KETONE, URINE NEG (NEG); NITRITE,URINE NEG (NEG); PH, URINE 5.5 (5.0-8.5); SQUAMOUS EPITHELIAL CELL URINE <1 /hpf (0-5); URINE COLOR YELLOW (YELLW/STRAW)
[2017-05-03] MEDS ORDERED: DOCUSATE SODIUM 50 MG/SENNA 8.6 MG TAB PO SCH (09:00)
[2017-05-03] MEDS: SODIUM CHLORIDE 0.9% FLUSH 10 ML FLUSH IV FLUSH SCH ×2 (09:21→22:27)
--- NOTE | 2017-05-03 13:20 | HHI.HP ---
HPI Service [facility] Primary Care Physician No Primary Care Physician Admission Diagnosis left ankle abscess. Sepsis. Renal insufficiency. Rhabdomyolysis. Diagnoses: (1) Sepsis (2) Abscess of bursa of left ankle (3) Toxic metabolic encephalopathy (4) Rhabdomyolysis (5) Acute renal failure superimposed on stage 4 chronic kidney disease (6) Hyperkalemia Travel History International Travel<30 Days: No Contact w/Intl Traveler <30 Da: No Traveled to Known Affected Are: No Sepsis Criteria SIRS Criteria (2 or more): Temp > 100.9 or < 96.8, Heart rate over 90 Sepsis Criteria (SIRS+source): Infect source susp/known Severe Sepsis (+one): Lactate >2 Criteria Outcome: Meets severe sepsis criteria History of Present Illness 61-year-old female with a PMH of HTN, Hepatitis C, Chronic Pain, COPD, Tobacco Abuse was brought to the ED for evaluation of altered mental status change, after patient was found by a family member to be lethargic. Per family member initially patient's has been complaining of left ankle pain post fall. Left ankle x-ray revealed abscess. On admission vital were Tmax 101.3, HR 102, BP 184/79. Lactic acid of 2.8 and worsening renal function. During my exam today , although patient was lethargic however she was arousable and able to provides more history. She reported fall about a week ago thus injuring her left ankle. She complained of severe pain 8/10 in intensity with difficulty bearing weight on left lower extremity. She treated herself with Bactroban ointment, however denies any febrile episode. Patient report a history of low back pain for which she uses Dilaudid as well as IV fentanyl. She denies any chest pain or shortness of breath. Review of Systems Except as stated in HPI: all other systems reviewed are Neg Past Family Social History Past Medical History HTN Hepatitis C Chronic Pain COPD Tobacco Abuse and h/o Cocaine Abuse Past Surgical History Appendectomy Reported Medications See EMR Allergies: Coded Allergies: Penicillin (Verified Allergy, Severe, Hives, 05/03/17) Erythromycin (Verified Allergy, Intermediate, yeast infection, 05/03/17) Ativan (Verified Allergy, Unknown, 05/03/17) *MDRO Multi-Drug Resistant Organism (Verified Adverse Reaction, Unknown, ) MRSA PCR (nares) positive - 01/06/16; MRSA (blood-03/2016) Family History No h/o DM or CAD Social History Denies alcohol, smokes half a pack tobacco. Recent history of positive marijuana Physical Exam Vital Signs Vital Signs Date Time Temp Pulse Resp B/P Pulse Ox O2 Delivery O2 Flow Rate FiO2 05/03/17 12:19 97.8 69 18 138/72 100 05/03/17 10:00 75 05/03/17 08:04 98.3 85 18 118/62 98 05/03/17 07:08 80 18 128/61 100 Nasal Cannula 2 05/03/17 03:53 100 Room Air 05/03/17 03:53 101 16 05/03/17 03:49 101.3 102 18 184/79 99 Physical Exam GENERAL: This is a well-nourished, well-developed patient, in no apparent distress. SKIN: No rashes, ecchymoses or lesions. Cool and dry. HEAD: Atraumatic. Normocephalic. No temporal or scalp tenderness. EYES: Pupils equal round and reactive. Extraocular motions intact. No scleral icterus. No injection or drainage. ENT: Nose without bleeding, purulent drainage or septal hematoma. Throat without erythema, tonsillar hypertrophy or exudate. Uvula midline. Airway patent. NECK: Trachea midline. No JVD or lymphadenopathy. Supple, nontender, no meningeal signs. CARDIOVASCULAR: Regular rate and rhythm without murmurs, gallops, or rubs. RESPIRATORY: Clear to auscultation. Breath sounds equal bilaterally. No wheezes , rales, or rhonchi. GASTROINTESTINAL: Abdomen soft, non-tender, nondistended. No hepato-splenomegaly , or palpable masses. No guarding. MUSCULOSKELETAL: Extremities without clubbing, cyanosis, or edema. No joint tenderness, effusion, or edema noted. No calf tenderness. Negative Homans sign bilaterally. Dressing over left ankle NEUROLOGICAL: Awake and alert. Cranial nerves II through XII intact. Motor and sensory grossly within normal limits. Five out of 5 muscle strength in all muscle groups. Normal speech. Laboratory Laboratory Tests Test 05/03/17 05/03/1705/03/17 03:30 06:08 07:04 White Blood Count 5.4 Red Blood Count 3.46 Hemoglobin 10.9 Hematocrit 32.2 Mean Corpuscular Volume 93.2 Mean Corpuscular Hemoglobin 31.5 Mean Corpuscular Hemoglobin 33.8 Concent Red Cell Distribution Width 14.0 Platelet Count 161 Mean Platelet Volume 9.8 Neutrophils (%) (Auto) Lymphocytes (%) (Auto) Monocytes (%) (Auto) Eosinophils (%) (Auto) Basophils (%) (Auto) Neutrophils # (Auto) Lymphocytes # (Auto) Monocytes # (Auto) Eosinophils # (Auto) Basophils # (Auto) CBC Comment AUTO DIFF Differential Total Cells 100 Counted Neutrophils % (Manual) 46 Band Neutrophils % 28 Lymphocytes % 22 Monocytes % 1 Eosinophils % 3 Neutrophils # (Manual) 4.0 Differential Comment FINAL DIFF MANUAL Platelet Estimate NORMAL Platelet Morphology Comment NORMAL Prothrombin Time 10.6 Prothromb Time International 1.0 Ratio Activated Partial 21.0 Thromboplast Time Sodium Level 135 Potassium Level 5.5 Chloride Level 105 Carbon Dioxide Level 18.5 Anion Gap 12 Blood Urea Nitrogen 63 Creatinine 3.46 Estimat Glomerular Filtration 13 Rate Random Glucose 101 Lactic Acid Level 2.8 0.4 Calcium Level 8.4 Total Bilirubin 0.4 Aspartate Amino Transf 232 (AST/SGOT) Alanine Aminotransferase 193 (ALT/SGPT) Alkaline Phosphatase 83 Total Creatine Kinase 4202 Creatine Kinase MB 17.5 Creatine Kinase MB % 0.4 Troponin I 0.02 Total Protein 7.9 Albumin 3.0 Thyroid Stimulating Hormone 0.799 3rd Gen Salicylates Level 2.4 Acetaminophen Level LESS THAN 2.0 Ethyl Alcohol Level LESS THAN 3 Urine Color YELLOW Urine Turbidity CLEAR Urine pH 5.5 Urine Specific [place] 1.014 Urine Protein 30 Urine Glucose (UA) NEG Urine Ketones NEG Urine Occult Blood MOD Urine Nitrite NEG Urine Bilirubin NEG Urine Urobilinogen LESS THAN 2.0 Urine Leukocyte Esterase NEG Urine RBC LESS THAN 1 Urine WBC 1 Urine Squamous Epithelial <1 Cells Urine Amorphous Sediment RARE Urine Bacteria OCC Microscopic Urinalysis Comment CULT NOT INDICATED Urine Opiates Screen POS Urine Barbiturates Screen NEG Urine Amphetamines Screen NEG Urine Benzodiazepines Screen NEG Urine Cocaine Screen POS Urine Cannabinoids Screen NEG Date/Time Procedure Status Source Growth 05/03/17 07:03 Gram Stain - Final Resulted Wound Ankle 05/03/17 07:03 Wound Culture Resulted Wound Ankle Pending 05/03/17 03:30 Aerobic Blood Culture Received Blood Peripheral Pending 05/03/17 03:30 Anaerobic Blood Culture Received Blood Peripheral Pending Result Diagram: 05/03/1732905/03/17329 Imaging Last Impressions Ankle X-Ray 05/03/17317 Signed Impressions: Service Date/Time: Wednesday, May 03, 2017 04:17 - CONCLUSION: Soft tissue swelling over the lateral malleolus with no evidence of osteomyelitis or foreign body. Eddy Middleton MD Head CT 05/03/17312 Signed Impressions: Service Date/Time: Wednesday, May 03, 2017 04:13 - CONCLUSION: Unremarkable exam. Eddy Middleton MD Chest X-Ray 05/03/17312 Signed Impressions: Service Date/Time: Wednesday, May 03, 2017 04:12 - CONCLUSION: 1. Catheter projected over the upper left lateral chest wall which may represent a central venous line which has an unusual course and extends cephalad. The tip of the catheter is not visualized. 2. No acute cardiopulmonary disease. There is no evidence of pneumothorax. Eddy Middleton MD Assessment and Plan Problem List: (1) Sepsis ICD Code: A41.9 Status: Acute (2) Abscess of bursa of left ankle ICD Code: M71.072 Status: Acute (3) Rhabdomyolysis ICD Code: M62.82 Status: Acute (4) Tobacco abuse ICD Code: Z72.0 Status: Chronic (5) Acute kidney injury ICD Code: N17.9 Status: Acute Assessment and Plan 61-year-old female with Severe sepsis: Temp > 100.9 or < 96.8, Heart rate over 90; Lactate >2; source ( abscess of bursa of left ankle), status post IV antibiotics in ED, continue with antibiotics pending culture reports Abscess of bursa of left ankle: Ankle x-ray noted and reviewed by me with finding of Soft tissue swelling over the lateral malleolus with no evidence of osteomyelitis or foreign body. Continue with antibiotic including Azactam IV pending culture report. Wound care nurse consult pending Metabolic acidosis Resolved Nontraumatic rhabdomyolysis Aggressive IV fluid hydration Monitor CK Toxic metabolic encephalopathy Head CT noted and review by me without any acute finding Chest x-ray noted and review by me without any cardio pulmonary disease Hold all SENIOR ADMINISTRATOR SUPPORT depressant medications Acute on chronic kidney disease stage IV Continue with aggressive IV fluid hydration, monitor BUN and creatinine and avoid all nephrotoxic drugs Check renal ultrasound Hyperkalemia Repeat K and if greater than 5.6 treat with Kayexalate Transaminitis Secondary to chronic liver disease due to hep C Monitor Chronic low back pain Secondary to toxic encephalopathy due to see the depressant medication, will hold on Dilaudid Tylenol when necessary PT consult to treat and eval Tobacco abuse Tobacco counseling provided Start nicotine patch History of hepatitis C Chronic, outpatient management Hypertension Currently normotensive on no BP med Cardizem when necessary DVT prophylaxis Heparin Code Status Full code Discussed Condition With Patient Physician Certification 2 Midnight Certification Type: Admission for Inpatient Services Order for Inpatient Services The services are ordered in accordance with Medicare regulations or non- Medicare payer requirements, as applicable. In the case of services not specified as inpatient-only, they are appropriately provided as inpatient services in accordance with the 2-midnight benchmark. Estimated LOS (days): 2 days is the estimated time the patient will need to remain in the hospital, assuming treatment plan goals are met and no additional complications. Post-Hospital Plan: Not yet determined Problem Qualifiers (1) Sepsis: Qualified Code: A41.9 - Sepsis, due to unspecified organism (2) Rhabdomyolysis: Qualified Code: M62.82 - Non-traumatic rhabdomyolysis Wesley Guevara MD May 03, 2017 13:20
[2017-05-03] MEDS ORDERED: RESP: ALBUTEROL 2.5 MG/IPRATROPIUM 0.5 MG NEB (PRN) NEB (13:45)
[2017-05-03] MEDS ORDERED: DOCUSATE SODIUM 50 MG/SENNA 8.6 MG TAB PO PRN (13:45)
[2017-05-03] MEDS ORDERED: CALCIUM CARBONATE 500 MG CHEWABLE TAB CHEW PRN (13:45)
[2017-05-03] MEDS ORDERED: ONDANSETRON HCL 4 MG/2 ML VIAL IV PRN (13:45)
--- NOTE | 2017-05-03 14:14 | EKG ---
Date Performed: 05/03/2017 Time Performed: 04:33:39 PTAGE: 61 years EKG: Sinus rhythm POSSIBLE SEPTAL MYOCARDIAL INFARCTION BORDERLINE ECG Compared to prior tracing no significant change PREVIOUS TRACING : 12/04/2016 19.30 DOCTOR: Dimas Dodge Interpretating Date/Time 05/03/2017 14:11:33
[2017-05-03] MEDS: AZTREONAM INJ 1,000 MG in SODIUM CHLORIDE 0.9% INJ 100 ML IV SCH (16:41)
--- NOTE | 2017-05-03 17:22 | RADRPT ---
EXAM DATE/TIME: 05/03/2017 14:16 [facility] COMPARISON: CT ABDOMEN W CONTRAST, March 24, 2016, 8:47. INDICATIONS : Increased BUN/Creatinine. MEDICAL HISTORY : Hypertension. Chronic obstructive pulmonary disease. Hepatitis. MRSA PCR. SURGICAL HISTORY : Appendectomy. ENCOUNTER: Subsequent ACUITY: 1 day PAIN SCORE: 0/10 LOCATION: Bilateral flank MEASUREMENTS: RIGHT KIDNEY: 9.4 x 4.0 x 4.6 cm LEFT KIDNEY: 9.9 x 4.2 x 4.4 cm FINDINGS: The bladder is decompressed with a 4 is not evaluated. There is an approximate 1.2 cm area of mixed e chogenicity upper pole right kidney probably an area of scar seen on the patient's prior CT examinati on from 2015. There is a trace of fluid in Rothman's pouch. There is no hydronephrosis and extra nuno al pelvis is seen on the right. CONCLUSION: Slightly of scar right upper kidney and trace of fluid in Rothman's pouch. Jose Mcghee MD on May 03, 2017 at 17:17 Board Certified Radiologist. This report was verified electronically.
--- NOTE | 2017-05-03 19:14 | PD.WCN.NOT ---
Wound Consult Description: Consult for WOUND MANAGEMENT of left ankle per Dr Guevara Communicated with: BRONSON Raya Dr Recommendation: BID and PRN: 1/2" Iodoform packing to left lateral ankle. Cover with foam dressing secured with rolled gauze. Additional Information: Patient seen on for wound evaluation status post I&D of left lateral distal ankle. Patient was sleeping when scientific writer entered room for assessment. Patient name was called multiple times before being aroused. Patient states that the nurses just wrapped the wound and asked why we couldn't coordinate the assessment for wound cleansing/dressing. Patient states that she needs pain medicine and complains of pain when removing 4x4's. RN called for pain medication. Wound was gently cleansed with NS and gauze and measures 4cm x 3cm x 1.3cm of boggy pale white hazy purple tissue with an opening in the center measuring ~1cm x 0.3cm x 1.3cm where there is minimal sanguinous drainage with no noted odor. Periwound is warm to touch, erythematous, and minimally edematous extending out ~2cm from wound margins. Maxorb was applied over wound bed and covered with foam secured with rolled gauze and tape (no tape was applied to skin). Patient was not able to tolerate wound packing at this time, therefore the dry covers were applied until wound care orders are obtained for packing BID and PRN as recommended. Yohana Giraldo [facility] May 03, 2017 19:14
[2017-05-03] MEDS: LACTOBACILLUS ACIDOPHILUS TAB PO SCH (22:26)
[2017-05-03 23:56] LABS: CKMB 6.8 NG/ML (0.5-3.6)
[2017-05-04] VITALS (8 sets, daily range): BP systolic 146–172; BP diastolic 77–101; PULSE 74–85; RESP 16–18; TEMP 98.2–99.4; O2SAT 98–100
[2017-05-04] MEDS: SODIUM CHLOR 0.9% 1000 ML INJ 1,000 ML IV SCH ×3 (04:54→18:20)
[2017-05-04] MEDS: AZTREONAM INJ 1,000 MG in SODIUM CHLORIDE 0.9% INJ 100 ML IV SCH ×2 (06:00→17:14)
[2017-05-04 07:09] LABS: AUTOMATED NEUTROPHIL # 2.6 TH/MM3 (1.8-7.7); BASOPHIL % 0.4 % (0.0-2.0); EOSINOPHIL # 0.5 TH/MM3 (0-0.4); EOSINOPHIL % 10.4 % (0.0-4.0); HEMATOCRIT 28.1 % (35.0-46.0); HEMO FLAGS DIFF FINAL; LYMPH % 27.9 % (9.0-44.0); LYMPHOCYTE # 1.3 TH/MM3 (1.0-4.8); MEAN CELL VOLUME 93.5 FL (80.0-100.0); MEAN CORPUSCULAR HEMOGLOBIN 31.4 PG (27.0-34.0); MEAN CORPUSCULAR HGB CONC 33.6 % (32.0-36.0); MONO % 8.3 % (0.0-8.0); PLATELET COUNT 145 TH/MM3 (150-450); WHITE BLOOD COUNT 4.8 TH/MM3 (4.0-11.0)
[2017-05-04 07:19] LABS: ALT (GPT) 110 U/L (10-53); ANION GAP 6 MEQ/L (5-15); AST (GOT) 94 U/L (15-37); BICARBONATE 21.8 MEQ/L (21.0-32.0); BLOOD UREA NITROGEN 39 MG/DL (7-18); CHLORIDE 115 MEQ/L (98-107); GLOMERULAR FILTRATION RATE 30 ML/MIN (>89); POTASSIUM 4.7 MEQ/L (3.5-5.1); SODIUM (NA) 143 MEQ/L (136-145)
[2017-05-04 07:22] LABS: ALKALINE PHOSPHATASE 57 U/L (45-117); TOTAL BILIRUBIN ADULT 0.2 MG/DL (0.2-1.0)
[2017-05-04] MEDS: SODIUM CHLORIDE 0.9% FLUSH 10 ML FLUSH IV FLUSH SCH ×2 (09:00→21:00)
[2017-05-04] MEDS: NICOTINE 14 MG/24 HR PATCH T-DERMAL SCH (09:38)
[2017-05-04] MEDS: LACTOBACILLUS ACIDOPHILUS TAB PO SCH ×2 (09:38→22:22)
[2017-05-04 09:53] LABS: CKMB 4.7 NG/ML (0.5-3.6)
--- NOTE | 2017-05-04 10:02 | HHI.PR ---
Subjective Remarks 61-year-old female with //Severe sepsis: Temp > 100.9 or < 96.8, Heart rate over 90; Lactate >2; source (abscess of bursa of left ankle), status post IV antibiotics in ED, continue with antibiotics pending culture reports //Abscess of bursa of left ankle: -Ankle x-ray with finding of Soft tissue swelling over the lateral malleolus with no evidence of osteomyelitis or foreign body. -Continue with antibiotic including Azactam IV pending culture report. Gentamicin added 05/04. -Appreciate wound care nurse assistance. //Metabolic acidosis Resolved //Nontraumatic rhabdomyolysis -Possibly secondary to cocaine. Aggressive IV fluid hydration Monitor CKimproving //Toxic metabolic encephalopathy Head CT noted and review by me without any acute finding Chest x-ray noted and review by me without any cardio pulmonary disease Hold all GAME PROTECTOR depressant medications //Acute on chronic kidney disease stage IV Continue with aggressive IV fluid hydration, monitor BUN and creatinine and avoid all nephrotoxic drugs Check renal ultrasound //Hyperkalemia 5.6 on admission. Appears to have resolved. //Transaminitis Secondary to rhabdo,chronic liver disease due to hep C Improved. //Chronic low back pain Secondary to toxic encephalopathy due to see the depressant medication, will hold on Dilaudid Tylenol when necessary Appreciate PT consult //Tobacco abuse Tobacco counseling provided cont nicotine patch //History of hepatitis C Chronic, outpatient management //Hypertension Currently normotensive on no BP med Cardizem when necessary //Cocaine abuse. cessation adviased. counseling provided. //DVT prophylaxis Heparin Objective Vital Signs Date Time Temp Pulse Resp B/P Pulse Ox O2 Delivery O2 Flow Rate FiO2 05/04/17 08:04 98.2 81 18 156/101 99 05/04/17 04:00 Nasal Cannula 2.00 05/04/17 03:50 98.4 74 16 153/95 100 05/04/17 00:00 Nasal Cannula 2.00 05/03/17 23:32 98.4 78 16 179/86 100 150/74 05/03/17 20:38 98.4 77 16 154/98 99 05/03/17 20:00 77 05/03/17 20:00 Nasal Cannula 2.00 05/03/17 16:06 98.5 72 17 136/67 100 05/03/17 16:00 Nasal Cannula 2.00 05/03/17 12:19 97.8 69 18 138/72 100 05/03/17 12:00 Nasal Cannula 2.00 05/03/17 10:00 75 I/O 05/03/17 05/03/17 05/03/17 05/04/17 05/04/17 05/04/17 07:00 15:00 23:00 07:00 15:00 23:00 Intake Total 120 ml 2412 ml 1213 ml Output Total 1050 ml 1325 ml 1025 ml Balance -930 ml 1087 ml 188 ml Intake Oral 120 ml 600 ml 480 ml IV Total 1812 ml 733 ml Output Urine Total 1050 ml 1325 ml 1025 ml # Bowel Movements 0 0 1 Result Diagram: 05/04/1762905/04/17629 Objective Remarks GENERAL: Patient lying in bed. Appears initially comfortable, however uncomfortable after ankle examination. Alert and oriented 3. SKIN: Warm and dry. HEAD: Normocephalic. EYES: No scleral icterus. No injection or drainage. NECK: Supple, trachea midline. No JVD. CARDIOVASCULAR: Regular rate and rhythm without murmurs, gallops, or rubs. RESPIRATORY: Breath sounds equal bilaterally. No accessory muscle use. GASTROINTESTINAL: Abdomen soft, non-tender, nondistended. MUSCULOSKELETAL: No cyanosis, or edema. Left lateral malleolus with 1.5 x 1.5 cm incised abscess. 1 cm surrounding erythema. Tender to palpation BACK: Nontender without obvious deformity. No CVA tenderness. A/P Assessment and Plan =====05/04/17==== Patient on monotherapy with aztreonam. Will add clindamycin for MRSA coverage. Follow-up abscess cultures still pending. Appreciate wound care assistance. CK 1248. Improving. Continue to monitor 61-year-old female with //Severe sepsis: Temp > 100.9 or < 96.8, Heart rate over 90; Lactate >2; source (abscess of bursa of left ankle), status post IV antibiotics in ED, continue with antibiotics pending culture reports //Abscess of bursa of left ankle: -Ankle x-ray with finding of Soft tissue swelling over the lateral malleolus with no evidence of osteomyelitis or foreign body. -Continue with antibiotic including Azactam IV pending culture report. Gentamicin added 05/04. -Appreciate wound care nurse assistance. //Metabolic acidosis Resolved //Nontraumatic rhabdomyolysis -Possibly secondary to cocaine. Aggressive IV fluid hydration Monitor CKimproving //Toxic metabolic encephalopathy Head CT noted and review by me without any acute finding Chest x-ray noted and review by me without any cardio pulmonary disease Hold all GAME PROTECTOR depressant medications //Acute on chronic kidney disease stage IV Continue with aggressive IV fluid hydration, monitor BUN and creatinine and avoid all nephrotoxic drugs Check renal ultrasound //Hyperkalemia 5.6 on admission. Appears to have resolved. //Transaminitis Secondary to rhabdo,chronic liver disease due to hep C Improved. //Chronic low back pain Secondary to toxic encephalopathy due to see the depressant medication, will hold on Dilaudid Tylenol when necessary Appreciate PT consult //Tobacco abuse Tobacco counseling provided cont nicotine patch //History of hepatitis C Chronic, outpatient management //Hypertension Currently normotensive on no BP med Cardizem when necessary //Cocaine abuse. cessation adviased. counseling provided. //DVT prophylaxis Heparin Discharge Planning pt ff -difficult DC. -will need abx, dressing changes at home. Lukas Coppola MD May 04, 2017 10:02
[2017-05-04] MEDS: CLINDAMYCIN INJ 900 MG in SODIUM CHLORIDE 0.9% INJ 100 ML IV SCH ×2 (12:23→18:20)
[2017-05-04] MEDS: VANCOMYCIN 1,000 MG/NS 250 ML IV SCH ×2 (17:09)
[2017-05-05] VITALS (7 sets, daily range): BP systolic 150–165; BP diastolic 86–92; PULSE 76–92; RESP 16–18; TEMP 98.2–98.6; O2SAT 99
[2017-05-05] MEDS: SODIUM CHLOR 0.9% 1000 ML INJ 1,000 ML IV SCH ×3 (00:56→14:05)
[2017-05-05] MEDS: CLINDAMYCIN INJ 900 MG in SODIUM CHLORIDE 0.9% INJ 100 ML IV SCH ×5 (00:56→23:38)
[2017-05-05] MEDS: AZTREONAM INJ 1,000 MG in SODIUM CHLORIDE 0.9% INJ 100 ML IV SCH ×2 (06:26→18:09)
[2017-05-05] MEDS: REMOVE OLD PATCH T-DERMAL SCH (09:00)
[2017-05-05] MEDS: SODIUM CHLORIDE 0.9% FLUSH 10 ML FLUSH IV FLUSH SCH ×2 (09:00→21:16)
[2017-05-05] MEDS: LACTOBACILLUS ACIDOPHILUS TAB PO SCH ×2 (10:24→21:16)
[2017-05-05] MEDS: NICOTINE 14 MG/24 HR PATCH T-DERMAL SCH (10:24)
[2017-05-05] MEDS: VANCOMYCIN 1,000 MG/NS 250 ML IV SCH ×2 (16:48)
[2017-05-05] MEDS ORDERED: diphenhydrAMINE HCL 25 MG CAP PO ONE (23:15)
--- NOTE | 2017-05-05 23:21 | HHI.PR ---
Subjective Remarks Patient seen today around noon. Says she is feeling all right. Denies any chest pain or shortness of breath. Reports pain is under control. Objective Vital Signs Date Time Temp Pulse Resp B/P Pulse Ox O2 Delivery O2 Flow Rate FiO2 05/05/17 20:00 98.2 92 18 150/90 99 05/05/17 16:03 98.6 76 16 156/86 99 05/05/17 12:03 98.5 76 16 158/88 99 05/05/17 08:03 98.6 77 16 160/89 99 05/05/17 08:00 Nasal Cannula 2.00 05/05/17 08:00 85 05/05/17 04:15 98.3 77 16 165/92 99 156/90 05/05/17 00:00 Nasal Cannula 2.00 05/04/17 23:20 98.4 80 16 172/89 99 152/92 I/O 05/04/17 05/04/17 05/04/17 05/05/17 05/05/17 05/05/17 07:00 15:00 23:00 07:00 15:00 23:00 Intake Total 1213 ml 240 ml 2563 ml 1530 ml 1379 ml 2790 ml Output Total 1025 ml 2000 ml 800 ml 2335 ml 1200 ml 802 ml Balance 188 ml -1760 ml 1763 ml -805 ml 179 ml 1988 ml Intake Oral 480 ml 240 ml 720 ml 480 ml 380 ml IV Total 733 ml 1843 ml 1050 ml 999 ml 2790 ml Output Urine Total 1025 ml 2000 ml 800 ml 2335 ml 1200 ml 800 ml Stool Total 2 ml # Bowel Movements 1 0 2 1 0 Result Diagram: 05/04/17 0630 05/04/17 0630 Objective Remarks GENERAL: Patient lying in bed. Appears initially comfortable, however uncomfortable after ankle examination. Alert and oriented 3. SKIN: Warm and dry. HEAD: Normocephalic. EYES: No scleral icterus. No injection or drainage. NECK: Supple, trachea midline. No JVD. CARDIOVASCULAR: Regular rate and rhythm without murmurs, gallops, or rubs. RESPIRATORY: Breath sounds equal bilaterally. No accessory muscle use. GASTROINTESTINAL: Abdomen soft, non-tender, nondistended. MUSCULOSKELETAL: No cyanosis, or edema. Left lateral malleolus with 1.5 x 1.5 cm incised abscess. improving erythema. Tender to palpation BACK: Nontender without obvious deformity. No CVA tenderness. A/P Assessment and Plan =====05/05/17==== //Strep abscess. Penicillin allergy. Tolerating aztreonam. We'll consult infectious disease. We'll start patient on Rocephin. Continue clindamycin. He -Continue dressing changes. = Follow-up electrolytes tomorrow. 61-year-old female with //Severe sepsis: Temp > 100.9 or < 96.8, Heart rate over 90; Lactate >2; source (abscess of bursa of left ankle), status post IV antibiotics in ED, continue with antibiotics pending culture reports //Abscess of bursa of left ankle: -Ankle x-ray with finding of Soft tissue swelling over the lateral malleolus with no evidence of osteomyelitis or foreign body. -Continue with antibiotic including Azactam IV pending culture report. Gentamicin added 05/04. -Appreciate wound care nurse assistance. //Metabolic acidosis Resolved //Nontraumatic rhabdomyolysis -Possibly secondary to cocaine. Aggressive IV fluid hydration Monitor CKimproving //Toxic metabolic encephalopathy Head CT noted and review by me without any acute finding Chest x-ray noted and review by me without any cardio pulmonary disease Hold all PRINCIPAL LIBRARIAN depressant medications //Acute on chronic kidney disease stage IV Continue with aggressive IV fluid hydration, monitor BUN and creatinine and avoid all nephrotoxic drugs Check renal ultrasound //Hyperkalemia 5.6 on admission. Appears to have resolved. //Transaminitis Secondary to rhabdo,chronic liver disease due to hep C Improved. //Chronic low back pain Secondary to toxic encephalopathy due to see the depressant medication, will hold on Dilaudid Tylenol when necessary Appreciate PT consult //Tobacco abuse Tobacco counseling provided cont nicotine patch //History of hepatitis C Chronic, outpatient management //Hypertension Currently normotensive on no BP med Cardizem when necessary //Cocaine abuse. cessation adviased. counseling provided. //DVT prophylaxis Heparin Discharge Planning pt ff -difficult DC. -will need abx, dressing changes at home. Lukas Coppola MD May 05, 2017 23:21
[2017-05-06] VITALS: BP 160/100; PULSE 81; RESP 16; TEMP 98.2; O2SAT 98
[2017-05-06] MEDS ORDERED: cefTRIAXone INJ 2,000 MG in SODIUM CHLORIDE 0.9% INJ 100 ML IV SCH ×2
[2017-05-06] MEDS: hydrALAZINE HCL 25 MG TAB PO PRN ×2 (01:21→08:45)
[2017-05-06 04:00] VITALS: BP 170/98; PULSE 90; RESP 18; TEMP 98.6; O2SAT 99
[2017-05-06] MEDS: CLINDAMYCIN INJ 900 MG in SODIUM CHLORIDE 0.9% INJ 100 ML IV SCH (05:36)
[2017-05-06 06:19] LABS: BASOPHIL % 0.5 % (0.0-2.0); EOSINOPHIL # 0.2 TH/MM3 (0-0.4); HEMATOCRIT 32.3 % (35.0-46.0); HEMO FLAGS DIFF FINAL; LYMPH % 39.8 % (9.0-44.0); LYMPHOCYTE # 1.7 TH/MM3 (1.0-4.8); MEAN CELL VOLUME 91.5 FL (80.0-100.0); MEAN CORPUSCULAR HEMOGLOBIN 30.9 PG (27.0-34.0); MEAN CORPUSCULAR HGB CONC 33.8 % (32.0-36.0); MONO % 8.8 % (0.0-8.0); NEUT % 45.9 % (16.0-70.0); PLATELET COUNT 189 TH/MM3 (150-450); RED BLOOD COUNT 3.53 MIL/MM3 (4.00-5.30); RED CELL DISTRIBUTION WIDTH 14.1 % (11.6-17.2); WHITE BLOOD COUNT 4.4 TH/MM3 (4.0-11.0)
[2017-05-06 08:00] VITALS: BP 189/102; PULSE 90; RESP 18; TEMP 98.9; O2SAT 95
[2017-05-06] MEDS: NICOTINE 14 MG/24 HR PATCH T-DERMAL SCH (08:45)
[2017-05-06] MEDS: REMOVE OLD PATCH T-DERMAL SCH (08:45)
[2017-05-06] MEDS: LACTOBACILLUS ACIDOPHILUS TAB PO SCH (08:45)
[2017-05-06] MEDS: SODIUM CHLORIDE 0.9% FLUSH 10 ML FLUSH IV FLUSH SCH (08:45)
[2017-05-06] MEDS ORDERED: CEPH-460 PO (09:57)
--- NOTE | 2017-05-06 09:59 | HHI.FF ---
Face to Face Verification Diagnosis: (1) Abscess of bursa of left ankle Physical Therapy Order: Evaluate and Treat Home Health Nursing Order: Nursing assessment with vital signs Instructions: nursing for wound care : /" Iodoform packing to left lateral ankle. Cover with foam dressing secured with rolled gauze. I have seen patient Avani Daniels on 05/06/17. My clinical findings support the need for the requested home health care services because: Deconditioned w/ increased weakness I certify that my clinical findings support that this patient is homebound because: Unsafe to leave home unassisted Lukas Coppola MD May 06, 2017 09:59
--- NOTE | 2017-05-06 11:04 | HHI.FF ---
Face to Face Verification Diagnosis: (1) Abscess of bursa of left ankle (2) Rhabdomyolysis (3) Renal insufficiency Home Health Nursing Order: Wound care and dressing changes Instructions: nursing for wound care : 1/" Iodoform packing to left lateral ankle. Cover with foam dressing secured with rolled gauze. I have seen patient Avani Daniels on 05/06/17. My clinical findings support the need for the requested home health care services because: Deconditioned w/ increased weakness I certify that my clinical findings support that this patient is homebound because: Unsafe to leave home unassisted Lukas Coppola MD May 06, 2017 11:04
[2017-05-06 12:00] VITALS: BP 172/86; PULSE 98; RESP 18; TEMP 99; O2SAT 97
[2017-05-06] MEDS ORDERED: PHARMACY ORDERED LAB ONE (15:45)
--- NOTE | 2017-05-06 22:36 | HHI.DS ---
Discharge Summary Admission Date May 03, 2017 at 06:18 Discharge Date: May 06, 2017 Admitting Diagnosis left ankle abscess. Sepsis. Renal insufficiency. Rhabdomyolysis. (1) Sepsis ICD Code: A41.9 (2) Abscess of bursa of left ankle ICD Code: M71.072 (3) Toxic metabolic encephalopathy ICD Code: G92 (4) Rhabdomyolysis ICD Code: M62.82 (5) Acute renal failure superimposed on stage 4 chronic kidney disease ICD Code: N17.9 (6) Hyperkalemia ICD Code: E87.5 Procedures incision and drainage of abscess over left ankle on admission Brief History - From Admission 61-year-old female with a PMH of HTN, Hepatitis C, Chronic Pain, COPD, Tobacco Abuse was brought to the ED for evaluation of altered mental status change, after patient was found by a family member to be lethargic. Per family member initially patient's has been complaining of left ankle pain post fall. Left ankle x-ray revealed abscess. On admission vital were Tmax 101.3, HR 102, BP 184/79. Lactic acid of 2.8 and worsening renal function. During my exam today , although patient was lethargic however she was arousable and able to provides more history. She reported fall about a week ago thus injuring her left ankle. She complained of severe pain 8/10 in intensity with difficulty bearing weight on left lower extremity. She treated herself with Bactroban ointment, however denies any febrile episode. Patient report a history of low back pain for which she uses Dilaudid as well as IV fentanyl. She denies any chest pain or shortness of breath. CBC/BMP: 05/06/17 0545 05/06/17 0545 Significant Findings Laboratory Tests Test 05/03/17 05/04/17 05/06/17 23:00 06:30 05:45 Total Creatine Kinase 1830 U/L 1248 U/L (26-192) (26-192) Creatine Kinase MB 6.8 NG/ML 4.7 NG/ML (0.5-3.6) (0.5-3.6) Red Blood Count 3.00 MIL/MM3 3.53 MIL/MM3 (4.00-5.30) (4.00-5.30) Hemoglobin 9.4 GM/DL 10.9 GM/DL (11.6-15.3) (11.6-15.3) Hematocrit 28.1 % 32.3 % (35.0-46.0) (35.0-46.0) Platelet Count 145 TH/MM3 (150-450) Monocytes (%) (Auto) 8.3 % (0.0-8.0) 8.8 % (0.0-8.0) Eosinophils (%) (Auto) 10.4 % 5.0 % (0.0-4.0) (0.0-4.0) Eosinophils # (Auto) 0.5 TH/MM3 (0-0.4) Chloride Level 115 MEQ/L (98-107) Blood Urea Nitrogen 39 MG/DL (7-18) Creatinine 1.73 MG/DL 1.08 MG/DL (0.50-1.00) (0.50-1.00) Estimat Glomerular Filtration 30 ML/MIN (>89) 51 ML/MIN (>89) Rate Random Glucose 114 MG/DL (74-106) Calcium Level 7.6 MG/DL (8.5-10.1) Aspartate Amino Transf 94 U/L (15-37) (AST/SGOT) Alanine Aminotransferase 110 U/L (10-53) (ALT/SGPT) Total Protein 6.0 GM/DL (6.4-8.2) Albumin 2.2 GM/DL (3.4-5.0) Imaging Last Impressions Ankle X-Ray 05/03/17317 Signed Impressions: Service Date/Time: Wednesday, May 03, 2017 04:17 - CONCLUSION: Soft tissue swelling over the lateral malleolus with no evidence of osteomyelitis or foreign body. Eddy Middleton MD Head CT 05/03/17312 Signed Impressions: Service Date/Time: Wednesday, May 03, 2017 04:13 - CONCLUSION: Unremarkable exam. Eddy Middleton MD Chest X-Ray 05/03/17312 Signed Impressions: Service Date/Time: Wednesday, May 03, 2017 04:12 - CONCLUSION: 1. Catheter projected over the upper left lateral chest wall which may represent a central venous line which has an unusual course and extends cephalad. The tip of the catheter is not visualized. 2. No acute cardiopulmonary disease. There is no evidence of pneumothorax. Eddy Middleton MD Renal Ultrasound 05/03/17 0000 Signed Impressions: Service Date/Time: Wednesday, May 03, 2017 14:16 - CONCLUSION: Slightly of scar right upper kidney and trace of fluid in Rothman's pouch. KAdebayo Mcghee MD Pt update on day of discharge patient sitting up in bed. Appears comfortable. Denies any chest pain or shortness breath. Says she feels like going home. Reports pain is under control.importance of close follow-up with primary care discussed with patient. Patient conveys understanding. Hospital Course =====05/05/17==== //Strep abscess. Penicillin allergy. Tolerating aztreonam. We'll consult infectious disease. We'll start patient on Rocephin. Continue clindamycin. He -Continue dressing changes. = Follow-up electrolytes tomorrow. 61-year-old female with //Severe sepsis: Temp > 100.9 or < 96.8, Heart rate over 90; Lactate >2; source (abscess of bursa of left ankle), status post IV antibiotics in ED, continue with antibiotics pending culture reports //Abscess of bursa of left ankle: -Ankle x-ray with finding of Soft tissue swelling over the lateral malleolus with no evidence of osteomyelitis or foreign body. -Continue with antibiotic including Azactam IV pending culture report. Gentamicin added 05/04. -Appreciate wound care nurse assistance. //Metabolic acidosis Resolved //Nontraumatic rhabdomyolysis -Possibly secondary to cocaine. Aggressive IV fluid hydration Monitor CKimproving //Toxic metabolic encephalopathy Head CT noted and review by me without any acute finding Chest x-ray noted and review by me without any cardio pulmonary disease Hold all [employer] depressant medications //Acute on chronic kidney disease stage IV Continue with aggressive IV fluid hydration, monitor BUN and creatinine and avoid all nephrotoxic drugs Check renal ultrasound //Hyperkalemia 5.6 on admission. Appears to have resolved. //Transaminitis Secondary to rhabdo,chronic liver disease due to hep C Improved. //Chronic low back pain Secondary to toxic encephalopathy due to see the depressant medication, will hold on Dilaudid Tylenol when necessary Appreciate PT consult //Tobacco abuse Tobacco counseling provided cont nicotine patch //History of hepatitis C Chronic, outpatient management //Hypertension Currently normotensive on no BP med Cardizem when necessary //Cocaine abuse. cessation adviased. counseling provided. //DVT prophylaxis Heparin Discharge Planning pt ff -difficult DC. -will need abx, dressing changes at home. Pt Condition on Discharge: Good Discharge Disposition: Disch w/ Home Health Serv Discharge Time: > 30 minutes Discharge Instructions DIET: Follow Instructions for: As Tolerated, No Restrictions Activities you can perform: Regular-No Restrictions Follow up Referrals: PCP Follow-up - 1 Week New Medications: Cephalexin (Keflex) 500 Mg Capsule 500 MG PO Q6H Infection Days 11 Ref 0 Lukas Gutiérrez MD May 06, 2017 22:36
== END 2017-05-06 15:15 | disposition home health service (06) | DRG 871 ==
LOC: NEPC 03:11 → NEDA 06:18 → N04B 07:44
PROVIDERS: ADMIT Internal Medicine; ATTEND Internal Medicine
PROC: 06HY33Z Insertion of Infusion Device into Lower Vein, Percutaneous Approach (ICD-10-PCS; principal; 2017-05-03)
PROC: 0H9LXZX Drainage of Left Lower Leg Skin, External Approach, Diagnostic (ICD-10-PCS; 2017-05-03)
DX: A41.9 Sepsis, unspecified organism (principal); G93.41 Metabolic encephalopathy; N17.9 Acute kidney failure, unspecified; E87.2 Acidosis; N18.4 Chronic kidney disease, stage 4 (severe); M62.82 Rhabdomyolysis; E87.5 Hyperkalemia; M71.072 Abscess of bursa, left ankle and foot; F17.210 Nicotine dependence, cigarettes, uncomplicated; I12.9 Hypertensive chronic kidney disease with stage 1 through stage 4 chronic kidney disease, or unspecified chronic kidney disease; R65.20 Severe sepsis without septic shock; G89.29 Other chronic pain; J44.9 Chronic obstructive pulmonary disease, unspecified; F14.10 Cocaine abuse, uncomplicated; B18.2 Chronic viral hepatitis C; B95.5 Unspecified streptococcus as the cause of diseases classified elsewhere; M54.5 Low back pain
CPT/HCPCS: 10060; 36556; 70450; 71010; 73610; 76775; 80053; 80202; 80307; 81001; 82550; 82552; 82565; 83605; 84443; 84484; 85007; 85025; 85027; 85610; 85730; 87040; 87070; 87205; 93005; 96374; J0696; J3370; J7030; J7050